=== PATIENT | male | born 1965 | race American Indian/Alaskan Native ===

== ENCOUNTER 2017-10-13 01:20 | Emergency (ER) | payer SELFPAY ==
[2017-10-13 03:11] VITALS: BP 129/83
[2017-10-13 05:30] LABS: Bilirubin,Urine NEG (Negative); Blood,Urine MOD (Negative); Color,Urine Yellow (Yellow); Mucus,Urine FEW /HPF; Urobilinogen,Urine < 2.0 mg/dL (<2.0)
--- NOTE | 2017-10-13 07:34 | Emergency Department Report ---
HPI - General Chief Complaint: Extremity Problem,Nontraumatic Time Seen by Provider: 10/13/17 07:24 - HPI HPI: Patient is a 52-year-old male with a history of blood pressure control with medication will presents to ED complaining of left knee 2 days. Patient states he woke up Wednesday morning and notices this swallowing. Patient denies any injury, fall to the knee. Patient states that he would've vehemently due to the pain in the knee. He denies fevers/chills/nausea vomiting/history of gout/loss of sensation the knee/injury. ED Past Medical Hx - Past Medical History Previous Medical History?: Yes Hx Hypertension: Yes Hx HIV: Yes - Surgical History Past Surgical History?: Yes Hx Appendectomy: Yes Additional Surgical History: benign tumor removed from neck - Social History Smoking Status: Never Smoker Substance Use Type: None - Medications Home Medications: Home Medications Medication Instructions Recorded Confirmed Last Taken Type Naproxen [Naprosyn] 500 mg PO BID #40 tablet 10/13/17 Unknown Rx traMADol [Ultram 50 MG tab] 50 mg PO Q6HR PRN #20 tablet 10/13/17 Unknown Rx ED Review of Systems ROS: Stated complaint: LT KNEE PAIN Other details as noted in HPI Constitutional: denies: chills, fever Eyes: denies: eye pain, eye discharge, vision change ENT: denies: ear pain, throat pain Respiratory: denies: cough, shortness of breath, wheezing Cardiovascular: denies: chest pain, palpitations Endocrine: no symptoms reported Gastrointestinal: denies: abdominal pain, nausea, diarrhea Genitourinary: denies: urgency, dysuria Musculoskeletal: joint swelling (L knee), arthralgia. denies: back pain Skin: denies: rash, lesions Neurological: denies: headache, weakness, paresthesias Psychiatric: denies: anxiety, depression Hematological/Lymphatic: denies: easy bleeding, easy bruising Physical Exam - Physical Exam Vital Signs: Vital Signs 10/13/17 02:56 Temperature 98.5 F Pulse Rate 94 H Respiratory 20 Rate Blood Pressure 129/83 O2 Sat by Pulse 96 Oximetry Physical Exam: GENERAL: Alert and oriented x3, no apparent distress, Normal Gait, atraumatic. HEAD: Head is normocephalic and a-traumatic. NECK: Supple. Non edematous, No lymphadenopathy or thyromegaly. No C-spine tenderness, full range of motion LUNGS: Symetrical with respiration, No wheezing, no rales or crackles, CTAB. HEART: S1, S2 present, regular rate and rhythm without murmur, no rubs, no gallops. Non tender to palpation BACK: Full range of motion, no spinal tenderness, Tenderness to palpation of the trapezius muscles and latissimus dorsi muscles of the back EXTREMITIES/MUSCULOSKELETAL: Left knee warm to touch, moderate edema, tender to palpation, pain with flexion and extension. Non-erythematous non- cellulitic. No cyanosis, clubbing, rash, lesions . Full ROM bilaterally. UE/LE Pulses 2+ bilaterally. LE and UE 5+ strength bilaterally. No calf involvement. NEUROLOGIC: The patient is cooperative with no focal neurologic deficits. SKIN: Warm and dry, No lesions, No ulceration or induration present. ED Course Vital Signs 10/13/17 02:56 Temperature 98.5 F Pulse Rate 94 H Respiratory 20 Rate Blood Pressure 129/83 O2 Sat by Pulse 96 Oximetry ED Medical Decision Making - Radiology Data Radiology results: report reviewed, image reviewed XRAY LEFT KNEE 3 VIEWS: 10/13/17 01:20:00 CLINICAL: Left knee pain and swelling. FINDINGS: No fracture or dislocation. Moderate medial joint space narrowing and mild medial joint space narrowing. Small medial and lateral osteophytes and subtle medial and lateral meniscal chondrocalcinosis. Minimal patellofemoral joint arthritis. Moderate anterior subcutaneous soft tissue edema and a small knee joint effusion. IMPRESSION: Mild osteoarthritis. Meniscal chondrocalcinosis and a small knee joint effusion. Transcribed By: REF Dictated By: KARL MAHER MD Electronically Authenticated By: KARL MAHER MD Signed Date/Time: 10/13/17 0755 - Medical Decision Making 52-year-old male presents with nonseptic osteoarthritis with mild effusion of the left knee ED course: Patient received pain control in ED X-rays ordered. See x-ray report above, discussed findings with the patient. Discussed the patient will follow-up with orthopedic doctor. Due to small effusion, no fever, patient looks well and nonseptic, discussed the patient will need to follow up with orthopedic doctor and possibly might get the knee joint arthrocentesis. I discussed the patient has some sounds knee effusions resolve on their own. I also discussed the patient hoarseness symptoms or new onset of symptoms such as fever, headache to return to ED immediately Vital signs are normal patient is in no acute distress - Differential Diagnosis 1. knee Joint effusion 2.osteoArthritis 3. gouty arthritis Critical care attestation.: If time is entered above; I have spent that time in minutes in the direct care of this critically ill patient, excluding procedure time. ED Disposition Clinical Impression: Effusion of left knee joint Osteoarthritis of left knee Qualifiers: Osteoarthritis type: primary Qualified Code(s): M17.12 - Unilateral primary osteoarthritis, left knee Disposition: TO HOME OR SELFCARE Is pt being admited?: No Does the pt Need Aspirin: No Condition: Stable Instructions: Osteoarthritis (ED), Knee Effusion (ED) Additional Instructions: Make sure to follow up with the orthopedic doctor as discussed. Take all your medications as you've been prescribed. If you have any worsening symptoms or develop new symptoms please return to ED immediately. Prescriptions: Naproxen [Naprosyn] 500 mg PO BID #40 tablet traMADol [Ultram 50 MG tab] 50 mg PO Q6HR PRN #20 tablet PRN Reason: Pain Referrals: PRIMARY CARE, [Primary Care Provider] - 3-5 Days VINCENZO PAGE MD [Staff Physician] - 3-5 Days [facility] [Outside] - 3-5 Days [facility] [Outside] - 3-5 Days Forms: Accompanied Note, Work/School Release Form(ED) Time of Disposition: 08:29
[2017-10-13] MEDS ORDERED: TORADOL IM ONE (07:37)
[2017-10-13] MEDS ORDERED: DELTASONE PO ONE (07:37)
--- NOTE | 2017-10-13 08:07 | XRay Report ---
XRAY LEFT KNEE 3 VIEWS: 10/13/17 01:20:00 CLINICAL: Left knee pain and swelling. FINDINGS: No fracture or dislocation. Moderate medial joint space narrowing and mild medial joint space narrowing. Small medial and lateral osteophytes and subtle medial and lateral meniscal chondrocalcinosis. Minimal patellofemoral joint arthritis. Moderate anterior subcutaneous soft tissue edema and a small knee joint effusion. IMPRESSION: Mild osteoarthritis. Meniscal chondrocalcinosis and a small knee joint effusion.
== END 2017-10-13 08:48 | disposition home or self-care (01) ==
LOC: ED 01:20
DX: M25.462 Effusion, left knee (principal); M17.12 Unilateral primary osteoarthritis, left knee; I10 Essential (primary) hypertension; Z90.49 Acquired absence of other specified parts of digestive tract
CPT/HCPCS: 73562; 81001; 96372; 99283; J1885; J7512

== ENCOUNTER 2017-10-14 19:07 | Inpatient (IN) | payer OTHER ==
[2017-10-15] MEDS ORDERED: XYLOCAINE 2% INFILTRATI ONE ×2 (02:20→02:21)
[2017-10-15] MEDS ORDERED: PERCOCET 5/325 PO ONE (02:21)
[2017-10-15] MEDS ORDERED: LEVAQUIN PO ONE (02:23)
--- NOTE | 2017-10-15 02:33 | Emergency Department Report ---
ED Extremity Problem HPI - General Chief complaint: Extremity Injury, Lower Stated complaint: LEFT KNEE PAIN Time Seen by Provider: 10/15/17 02:01 Source: patient, family Mode of arrival: Wheelchair Limitations: No Limitations - History of Present Illness Initial comments: Patient reports that he was here 2 days ago with left knee swelling and pain and he is returning today because pain is worse and swelling has not subsided. He is still complaining of urinary frequency but no burning with urination. Denies unprotected sex. Pain to left knees to another 10. Denies any back or abdominal pain. Denies any injury to his left knee. He states that he just woke up and it was swollen. Pain is throbbing to his left knee. Denies any history of infectious disease. Patient said he does not have gout. He does not have a primary care physician. He said he has been taking in naproxen and tramadol that was ordered for him but it's not helping. X-ray from 10/13/2017 reveals patient with degenerative joint disease,meniscal chondrocalcinosis and small joint effusion. Pain is worse with movement and touch bed with rest. Patient is HIV positive and takes through medication. He goes infectious disease on another road. He said his last 500+ and viral load was less than 20. Denies any cough, shortness of breath or chest pain. Denies any sore throat. MD Complaint: joint swelling, joint paint Onset/Timin -: days(s) Location: left, knee History of Same: No -: No myalgia, Yes arthralgia, No fever, No associated dyspnea, No associated chest pain Radiation: none Severity scale (0 -10): 10 Quality: aching, constant, other (throbbing ) Consistency: constant Improves with: immobilization, rest Worsens with: weight bearing, walking, exertion, palpation Associated Symptoms: arthralgias. denies: chest pain, shortness of breath, fever, myalgias, rash - Related Data Home Medications Medication Instructions Recorded Confirmed Last Taken Aspirin [Aspir-Low] 81 mg PO DAILY 10/15/17 10/15/17 1 Day Ago ~10/14/17 Hydrochlorothiazide [HCTZ] 25 mg PO QDAY 10/15/17 10/15/17 1 Day Ago ~10/14/17 Lisinopril [Zestril] 10 mg PO DAILY 10/15/17 10/15/17 1 Day Ago ~10/14/17 Previous Rx's Medication Instructions Recorded Last Taken Type Naproxen [Naprosyn] 500 mg PO BID #40 tablet 10/13/17 1 Day Ago Rx ~10/14/17 Oxybutynin [Ditropan] 5 mg PO BID #20 tablet 10/13/17 1 Day Ago Rx ~10/14/17 traMADol [Ultram 50 MG tab] 50 mg PO Q6HR PRN #20 tablet 10/13/17 1 Day Ago Rx ~10/14/17 Allergies Allergy/AdvReac Type Severity Reaction Status Date / Time Penicillins Allergy Rash Verified 09/12/13 22:45 ED Review of Systems ROS: Stated complaint: LEFT KNEE PAIN Other details as noted in HPI Comment: All other systems reviewed and negative Constitutional: no symptoms reported Respiratory: no symptoms reported Cardiovascular: denies: chest pain, palpitations, dyspnea on exertion, edema, syncope, paroxysmal nocturnal dyspnea Gastrointestinal: denies: abdominal pain, nausea, vomiting, diarrhea Genitourinary: frequency. denies: urgency, dysuria, hematuria, discharge, testicular pain, testicular mass Musculoskeletal: joint swelling, arthralgia. denies: back pain, myalgia Skin: denies: rash Neurological: abnormal gait. denies: headache, weakness, numbness, confusion, vertigo ED Past Medical Hx - Past Medical History Previous Medical History?: Yes Hx Hypertension: Yes Hx HIV: Yes - Surgical History Past Surgical History?: Yes Hx Appendectomy: Yes Additional Surgical History: benign tumor removed from neck - Family History Family history: no significant - Social History Smoking Status: Never Smoker Substance Use Type: None - Medications Home Medications: Home Medications Medication Instructions Recorded Confirmed Last Taken Type Naproxen [Naprosyn] 500 mg PO BID #40 tablet 10/13/17 10/15/17 1 Day Ago Rx ~10/14/17 Oxybutynin [Ditropan] 5 mg PO BID #20 tablet 10/13/17 10/15/17 1 Day Ago Rx ~10/14/17 traMADol [Ultram 50 MG tab] 50 mg PO Q6HR PRN #20 tablet 10/13/17 10/15/17 1 Day Ago Rx ~10/14/17 Aspirin [Aspir-Low] 81 mg PO DAILY 10/15/17 10/15/17 1 Day Ago History ~10/14/17 Hydrochlorothiazide [HCTZ] 25 mg PO QDAY 10/15/17 10/15/17 1 Day Ago History ~10/14/17 Lisinopril [Zestril] 10 mg PO DAILY 10/15/17 10/15/17 1 Day Ago History ~10/14/17 ED Physical Exam - General Limitations: No Limitations General appearance: alert, in no apparent distress - Head Head exam: Present: atraumatic, normocephalic, normal inspection, other (normal exam) - Eye Eye exam: Present: normal appearance, PERRL, EOMI. Absent: nystagmus Pupils: Present: normal accommodation - ENT ENT exam: Present: normal exam, normal orophraynx, mucous membranes moist, TM's normal bilaterally, normal external ear exam - Neck Neck exam: Present: normal inspection, full ROM, other (no C-spine tenderness). Absent: tenderness, meningismus, lymphadenopathy - Respiratory Respiratory exam: Present: normal lung sounds bilaterally. Absent: respiratory distress, wheezes, rales, rhonchi, stridor, chest wall tenderness, accessory muscle use, decreased breath sounds, prolonged expiratory - Cardiovascular Cardiovascular Exam: Present: normal rhythm, tachycardia, normal heart sounds. Absent: systolic murmur, diastolic murmur - GI/Abdominal GI/Abdominal exam: Present: soft, normal bowel sounds. Absent: distended, tenderness, guarding, rebound, rigid, organomegaly, mass, bruit, pulsatile mass , hernia - Extremities Exam Extremities exam: Present: tenderness (left knee), normal capillary refill, joint swelling (left knee), other (no clubbing cyanosis or edema. Patient with positive swelling and joint effusion to left knee. Positive warmth. Positive ballottement . Increased movement to left knee at 4/5. +2 pulses all extremities). Absent: normal inspection, full ROM (Limited range of motion to left knee due to pain and swelling.), pedal edema, calf tenderness - Expanded Lower Extremity Exam Left Hip exam: Present: normal inspection, full ROM, pelvic stability. Absent: tenderness, swelling, abrasion, laceration, ecchymosis, deformity, crepidus, dislocation, erythema, external rotation, internal rotation, shortening Upper Leg exam: Present: normal inspection, full ROM. Absent: tenderness, swelling, abrasion, laceration, ecchymosis, deformity, crepidus, dislocation, erythema Knee exam: Present: tenderness (left knee), swelling (F knee), effusion, pain w / pronation/supination, pain/laxity with valgus, pain/laxity with varus. Absent : normal inspection, full ROM (limited range of motion to left knee due to pain and swelling), abrasion, laceration, ecchymosis, deformity, posterior draw sign , full knee extension Lower Leg exam: Present: normal inspection, full ROM. Absent: tenderness, swelling, abrasion, laceration, ecchymosis, deformity, crepidus, dislocation, erythema, palpable cord, Vaughn's sign Ankle exam: Present: normal inspection, full ROM. Absent: abrasion, laceration , ecchymosis, deformity, crepidus, dislocation, erythema Foot/Toe exam: Present: normal inspection, full ROM. Absent: tenderness, swelling, abrasion, laceration, ecchymosis, deformity, crepidus, dislocation, erythema, amputation, puncture wound, foreign body, calcaneal tenderness, tenderness at base of 5th metatarsal, nail avulsion, subungual hematoma Neuro vascular tendon exam: Present: no vascular compromise, motor deficit (4/5 strength to left knee due to pain and swelling.), significant pain with passive ROM of distal joint. Absent: pulse deficit, abnormal cap refill, sensory deficit, tendon deficit, extremity cold to touch, pallor, abnormal 2-point discrimination, decreased fine/light touch, foot drop, peroneal nerve deficit Gait: Positive: unable to bear weight - Back Exam Back exam: Present: normal inspection, full ROM. Absent: tenderness, CVA tenderness (R), CVA tenderness (L), muscle spasm, paraspinal tenderness, vertebral tenderness, rash noted - Neurological Exam Neurological exam: Present: alert, oriented X3, abnormal gait (patient with abnormal gait left lower extremity due to left knee effusion, swelling and pain) , reflexes normal (left patellar reflex diminished comparing to right) - Psychiatric Psychiatric exam: Present: normal affect, normal mood - Skin Skin exam: Present: warm, dry, intact, normal color. Absent: rash ED Course Vital Signs 10/14/17 10/15/17 10/15/17 19:22 01:55 05:39 Temperature 97.8 F 99.3 F Pulse Rate 104 H 85 Respiratory 18 18 18 Rate Blood Pressure 136/78 Blood Pressure 135/86 [Right] O2 Sat by Pulse 95 99 99 Oximetry - Reevaluation(s) Reevaluation #1: 10/15/17 02:58 Patient given Percocet 5/325 mg 2 tablets by mouth preprocedure. He was given Levaquin 750 mg by mouth to cover urinary tract infection as he is allergic to penicillin. This was given post procedure. See procedure note for detail on joint aspiration and knee immobilizer. Reevaluation #2: 10/15/17 04:05 Patient is stable and pain control. Still awaiting in reports for synovial fluid left knee. Lab report the patient with white blood cell in synovial fluid , some red blood cell and no crystal. Patient to be started on IV vancomycin 1 g, CBC and BMP ordered. Patient updated. Reevaluation #3: 10/15/17 05:[address] Tong and he wants patient to be admitted under hospitalist service. I spoke with Dr. Gorman and he wants patient to get Rocephin 2 g IV despite being allergic to penicillin. Still awaiting and vancomycin. Patient aware that he will be admitted. Knee immobilizer removed. Reevaluation #4: 10/15/17 07:12 Patient awaited in admission to [facility] floor. Rocephin infused then and vancomycin until 2 infused. Patient is HIV positive on 3 medication and goes to HIV clinic - Consultations Consultation #1: 10/15/17 07:13 Dr. Briones orthopedic - Joint Aspiration/Injection Consent Obtained: written consent Time Out Performed: Yes (done by Dr. Tong) Indications: to relieve pressure/pain Side of Body: left Joint Aspirated: knee Ultrasound Guidance: No Skin Prep: Povidone-Iodine1% Local Anesthesia Used: Lidocaine 2% Amount of Anesthesia Used (mls): 5 Needle Size Used: 18G Syringe Size Used: Other (30 mL syringe) Fluid Obtained: viscous (yellow fluid) Total Fluid Obtained (mls): 30 Patient Tolerated Procedure: well, no complications Complications: none Additional Comments: Area cleansed with iodine and saline and dressed in place site - Orthopedic Splinting/Casting Injury #1 Lower Extremity Injury Location: knee Lower Extremity Immobilizer: knee immobilizer ED Medical Decision Making - Lab Data Result diagrams: 10/15/17 05:45 10/15/17 05:45 Lab Results 10/15/17 Range/Units 02:40 Fluid Type Synovial Fluid Color Yellow Fluid Appearance Turbid Fluid WBC 16159 /mm3 Fluid RBC 1000 /mm3 Fluid Seg Neutrophils 85.0 % Fluid Lymphocytes 11.0 % Fluid Reactive Lymphs 0 % Fluid Monocytes 4.0 % Fluid Eosinophils 0 % Fluid Basophils 0 % Fluid Comment Diff performed Synovial Crystals Negative (NONE SEEN) Lab Results 10/15/17 Range/Units 02:40 Fluid Type Synovial Fluid Color Yellow Fluid Appearance Turbid Fluid WBC 12749 /mm3 Fluid RBC 1000 /mm3 Fluid Seg Neutrophils 85.0 % Fluid Lymphocytes 11.0 % Fluid Reactive Lymphs 0 % Fluid Monocytes 4.0 % Fluid Eosinophils 0 % Fluid Basophils 0 % Fluid Comment Diff performed Synovial Crystals Negative (NONE SEEN) White blood count is 19.1 with shift to the left Pt with acute renal failure Blood cultures sent and pending Body fluid, left knee aspirate culture pending. Gram stain is pending. Urinalysis from 10/13/2017 reveal patient with acute cystitis with hematuria Urine gonorrhea and chlamydia sent and pending - Radiology Data Radiology results: image reviewed interpreted by me: Images from 10/13/2017 review patient with small effusion, degenerative joint disease and meniscal chondrocalcinosis. - Medical Decision Making ED course:Pt here complaining of left knee pain and swelling and he was here and 10/13/2017 and was sent home on tramadol and naproxen. Patient said the swelling has not gone down and he still have been pain. X-ray report reviewed from 10/13/2017 and showed patient with meniscal chondrocalcinosis, osteoarthritis and small joint effusion. Knee aspirate done under sterile procedure and patient with large amount of white cells and some red blood cell. Culture and Gram stain is still pending. Patient was also found to have urinary tract infection from 10/13/2017 lab work which she has not been placed on antibiotic. Patient afebrile initially but he started to develop low-grade fever. He was given Motrin 600 mg emergency room. I spoke with Dr. Tong regarding patient's knee aspirate and it was decided the patient will be admitted for septic joint. I spoke with Dr. Gorman will accept the patient. Orthopedic consulted. She is with HIV and is on 3 medication and also goes to clinic on that and all the road. He said his T-cell count was 500+ and viral load is less than 20. Initially patient was treated with Levaquin 750 mg by mouth for UTI. Patient now with septic joint so he was started on IV fluid 1 L , Percocet 5/325 2 tablets by mouth given, vancomycin 1 g and P care service ordered and Rocephin [address] Driscoll. He is aware the patient is allergic to penicillin but he still wanted patient to get medication. No adverse reaction from Rocephin and vancomycin to be started. Patient had multiple labs drawn and sent and he has elevated white count. Please refer to laboratory section on results. He's also has slightly diminished potassium and sodium and also acute renal failure. I discussed the patient and his family that he will be admitted and treated with IV antibiotic and followed by hospitalist and orthopedic doctor. Family to bring patient HIV meds so they can be reconciled. Patient is stable in no acute distress. Vital signs are stable. Awaiting to be placed on [facility] floor Critical care attestation.: If time is entered above; I have spent that time in minutes in the direct care of this critically ill patient, excluding procedure time. ED Disposition Clinical Impression: Effusion of left knee joint, Acute cystitis with hematuria, Arthralgia of left knee Septic arthritis of knee, left Qualifiers: Septic arthritis organism: due to other bacteria Qualified Code(s): M00.862 - Arthritis due to other bacteria, left knee Osteoarthritis of left knee Qualifiers: Osteoarthritis type: unspecified Qualified Code(s): M17.12 - Unilateral primary osteoarthritis, left knee Leukocytosis Qualifiers: Leukocytosis type: unspecified Qualified Code(s): D72.829 - Elevated white blood cell count, unspecified Acute renal failure (ARF) Qualifiers: Acute renal failure type: unspecified Qualified Code(s): N17.9 - Acute kidney failure, unspecified Disposition: -09 OP ADMIT IP TO THIS HOSP Is pt being admited?: Yes Does the pt Need Aspirin: No Condition: Stable
[2017-10-15 04:59] LABS: Total Cells Counted 100 /mm3
[2017-10-15] MEDS ORDERED: cefTRIAXone 2 GM in NACL 0.9% 20 ML IV ONE (05:23)
[2017-10-15] MEDS ORDERED: MOTRIN PO ONE (05:38)
[2017-10-15] MEDS ORDERED: NACL 0.9% 1000 ML 1,000 ML IV ONE (05:38)
[2017-10-15 05:52] LABS: Hematocrit 39.1 % (35.5-45.6); Hemoglobin 12.9 gm/dl (11.8-15.2); Mean Corpuscular HGB Conc 33 % (32-34); Mean Corpuscular Hemoglobin 28 pg (28-32); Mean Corpuscular Volume 85 fl (84-94); Platelet Count 305 K/mm3 (140-440); Red Blood Count 4.58 M/mm3 (3.65-5.03); Red Cell Distribution Width 14.1 % (13.2-15.2)
[2017-10-15] MEDS ORDERED: VANCOMYCIN PHARMACY TO DOSE IV SCH ×2 (06:00→13:00)
[2017-10-15] MEDS ORDERED: VANCOMYCIN/NS 1 GM/250 ML 1 GM/250 ML BAG IV SCH ×2 (06:00)
[2017-10-15 06:07] LABS: Calcium 8.8 mg/dL (8.4-10.2)
[2017-10-15 06:26] LABS: Erythrocyte Sedimentation Rate 29 mm/Hr (0-20)
[2017-10-15] MEDS ORDERED: cefTRIAXone 2 GM in NACL 0.9% 20 ML IV SCH ×2 (06:30→13:00)
[2017-10-15] MEDS ORDERED: VANCOMYCIN 2,000 MG in NACL 0.9% 500 ML 500 ML IV ONE ×2 (06:30→14:00)
[2017-10-15 07:05] LABS: Band Neutrophils # (Manual) 1.1 K/mm3; Basophils % (Manual) 0 % (0.0-1.8); Eosinophils % (Manual) 0 % (0.0-4.3); Total Cells Counted 100
[2017-10-15 07:06] LABS: Anisocytosis 1+; Hypochromasia 1+
[2017-10-15] MEDS: NACL 0.9% 1000 ML 1,000 ML IV SCH ×2 (09:18→17:53)
--- NOTE | 2017-10-15 12:38 | History and Physical Report ---
History of Present Illness Date of examination: 10/15/17 Date of admission: 10/15/17 05:24 Chief complaint: Left knee swelling History of present illness: Patient is a 52 year old -German male with history of HIV, who presented with 5 days history of left knee swelling. He denies fever, chills, chest pain, shortness of breath, palpitation, orthopnea or PND. No headaches, and nausea, vomiting, dizziness, syncope or loss of consciousness. He admits to dysuria and frequency, but no abdominal pain, constipation or diarrhea. 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) Social history: other (he denies tobacco, alcohol or illicit drug use) Family history: other (reviewed and noncontributory) Medications and Allergies Allergies Allergy/AdvReac Type Severity Reaction Status Date / Time Penicillins Allergy Rash Verified 09/12/13 22:45 Home Medications Medication Instructions Recorded Confirmed Last Taken Type Naproxen [Naprosyn] 500 mg PO BID #40 tablet 10/13/17 10/15/17 1 Day Ago Rx ~10/14/17 Oxybutynin [Ditropan] 5 mg PO BID #20 tablet 10/13/17 10/15/17 1 Day Ago Rx ~10/14/17 traMADol [Ultram 50 MG tab] 50 mg PO Q6HR PRN #20 tablet 10/13/17 10/15/17 1 Day Ago Rx ~10/14/17 Aspirin [Aspir-Low] 81 mg PO DAILY 10/15/17 10/15/17 1 Day Ago History ~10/14/17 Hydrochlorothiazide [HCTZ] 25 mg PO QDAY 10/15/17 10/15/17 1 Day Ago History ~10/14/17 Lisinopril [Zestril] 10 mg PO DAILY 10/15/17 10/15/17 1 Day Ago History ~10/14/17 Active Meds: Active Medications Sodium Chloride (Nacl 0.9% 1000 Ml) 1,000 mls @ 125 mls/hr IV DIRECT CESAR Last Admin: 10/15/17 09:18 Dose: 125 mls/hr Review of Systems All systems: negative (except as documented in the HPI, all other systems were reviewed and negative) Exam - Constitutional Vitals: Temp Pulse Resp BP Pulse Ox 98.0 F 80 18 118/70 97 10/15/17 09:35 10/15/17 09:35 10/15/17 09:35 10/15/17 09:35 10/15/17 09:35 General appearance: Present: no acute distress, well-nourished - EENT Eyes: Present: PERRL, EOM intact ENT: hearing intact, clear oral mucosa - Neck Neck: Present: supple, normal ROM - Respiratory Respiratory effort: normal Respiratory: bilateral: CTA - Cardiovascular Rhythm: regular Heart Sounds: Present: S1 & S2. Absent: rub, click - Extremities Extremities: pulses symmetrical Extremity abnormal: edema (LT knee with warmth and tenderness on palpation) Peripheral Pulses: within normal limits - Abdominal General gastrointestinal: Present: soft, non-tender, non-distended, normal bowel sounds - Musculoskeletal Musculoskeletal: gait normal, strength equal bilaterally - Psychiatric Psychiatric: appropriate mood/affect, intact judgment & insight - Neurologic Neurologic: CNII-XII intact Results - Labs CBC & Chem 7: 10/15/17 05:45 10/15/17 05:45 Labs: Laboratory Last Values WBC 19.1 K/mm3 (4.5-11.0) H 10/15/17 05:45 RBC 4.58 M/mm3 (3.65-5.03) 10/15/17 05:45 Hgb 12.9 gm/dl (11.8-15.2) 10/15/17 05:45 Hct 39.1 % (35.5-45.6) 10/15/17 05:45 MCV 85 fl (84-94) 10/15/17 05:45 MCH 28 pg (28-32) 10/15/17 05:45 MCHC 33 % (32-34) 10/15/17 05:45 RDW 14.1 % (13.2-15.2) 10/15/17 05:45 Plt Count 305 K/mm3 (140-440) 10/15/17 05:45 [place] % (Auto) Astrophysics Teacher 10/15/17 05:45 Add Manual Diff Complete 10/15/17 05:45 Total Counted 100 10/15/17 05:45 Seg Neuts % (Manual) 57.0 % (40.0-70.0) 10/15/17 05:45 Band Neutrophils % 6.0 % 10/15/17 05:45 Lymphocytes % (Manual) 18.0 % (13.4-35.0) 10/15/17 05:45 Reactive Lymphs % (Man) 0 % 10/15/17 05:45 Monocytes % (Manual) 19.0 % (0.0-7.3) H 10/15/17 05:45 Eosinophils % (Manual) 0 % (0.0-4.3) 10/15/17 05:45 Basophils % (Manual) 0 % (0.0-1.8) 10/15/17 05:45 Metamyelocytes % 0 % 10/15/17 05:45 Myelocytes % 0 % 10/15/17 05:45 Promyelocytes % 0 % 10/15/17 05:45 Blast Cells % 0 % 10/15/17 05:45 Nucleated RBC % Not Reportable 10/15/17 05:45 Seg Neutrophils # Man 10.9 K/mm3 (1.8-7.7) H 10/15/17 05:45 Band Neutrophils # 1.1 K/mm3 10/15/17 05:45 Lymphocytes # (Manual) 3.4 K/mm3 (1.2-5.4) 10/15/17 05:45 Abs React Lymphs (Man) 0.0 K/mm3 10/15/17 05:45 Monocytes # (Manual) 3.6 K/mm3 (0.0-0.8) H 10/15/17 05:45 Eosinophils # (Manual) 0.0 K/mm3 (0.0-0.4) 10/15/17 05:45 Basophils # (Manual) 0.0 K/mm3 (0.0-0.1) 10/15/17 05:45 Metamyelocytes # 0.0 K/mm3 10/15/17 05:45 Myelocytes # 0.0 K/mm3 10/15/17 05:45 Promyelocytes # 0.0 K/mm3 10/15/17 05:45 Blast Cells # 0.0 K/mm3 10/15/17 05:45 WBC Morphology Not Reportable 10/15/17 05:45 Hypersegmented Neuts Not Reportable 10/15/17 05:45 Hyposegmented Neuts Not Reportable 10/15/17 05:45 Hypogranular Neuts Not Reportable 10/15/17 05:45 Smudge Cells Not Reportable 10/15/17 05:45 Toxic Granulation Not Reportable 10/15/17 05:45 Toxic Vacuolation Not Reportable 10/15/17 05:45 Dohle Bodies Not Reportable 10/15/17 05:45 Pelger-Huet Anomaly Not Reportable 10/15/17 05:45 Radha Rods Not Reportable 10/15/17 05:45 Platelet Estimate Appears normal 10/15/17 05:45 Clumped Platelets Not Reportable 10/15/17 05:45 Plt Clumps, EDTA Not Reportable 10/15/17 05:45 Large Platelets Not Reportable 10/15/17 05:45 Giant Platelets Not Reportable 10/15/17 05:45 Platelet Satelliting Not Reportable 10/15/17 05:45 Plt Morphology Comment Not Reportable 10/15/17 05:45 RBC Morphology Not Reportable 10/15/17 05:45 Dimorphic RBCs Not Reportable 10/15/17 05:45 Polychromasia Not Reportable 10/15/17 05:45 Hypochromasia 1+ 10/15/17 05:45 Poikilocytosis Not Reportable 10/15/17 05:45 Anisocytosis 1+ 10/15/17 05:45 Microcytosis Not Reportable 10/15/17 05:45 Macrocytosis Not Reportable 10/15/17 05:45 Spherocytes Not Reportable 10/15/17 05:45 Pappenheimer Bodies Not Reportable 10/15/17 05:45 Sickle Cells Not Reportable 10/15/17 05:45 Target Cells Not Reportable 10/15/17 05:45 Tear Drop Cells Not Reportable 10/15/17 05:45 Ovalocytes Not Reportable 10/15/17 05:45 Helmet Cells Not Reportable 10/15/17 05:45 [place] Bodies Not Reportable 10/15/17 05:45 [place] Rings Not Reportable 10/15/17 05:45 Melani Cells Not Reportable 10/15/17 05:45 Bite Cells Not Reportable 10/15/17 05:45 Crenated Cell Not Reportable 10/15/17 05:45 Elliptocytes Not Reportable 10/15/17 05:45 Acanthocytes (Spur) Not Reportable 10/15/17 05:45 Rouleaux Not Reportable 10/15/17 05:45 Hemoglobin C Crystals Not Reportable 10/15/17 05:45 Schistocytes Not Reportable 10/15/17 05:45 Malaria parasites Not Reportable 10/15/17 05:45 ESR 29 mm/Hr (0-20) 10/15/17 05:45 Raf Bodies Not Reportable 10/15/17 05:45 Hem Pathologist Commnt No 10/15/17 05:45 Sodium 136 mmol/L (137-145) L 10/15/17 05:45 Potassium 4.8 mmol/L (3.6-5.0) 10/15/17 05:45 Chloride 96.6 mmol/L (98-107) L 10/15/17 05:45 Carbon Dioxide 26 mmol/L (22-30) 10/15/17 05:45 Anion Gap 18 mmol/L 10/15/17 05:45 BUN 27 mg/dL (9-20) H 10/15/17 05:45 Creatinine 1.7 mg/dL (0.8-1.5) H 10/15/17 05:45 Estimated GFR 52 ml/min 10/15/17 05:45 BUN/Creatinine Ratio 16 % 10/15/17 05:45 Glucose 134 mg/dL (75-100) H 10/15/17 05:45 Calcium 8.8 mg/dL (8.4-10.2) 10/15/17 05:45 Fluid Type Synovial 10/15/17 02:40 Fluid Color Yellow 10/15/17 02:40 Fluid Appearance Turbid 10/15/17 02:40 Fluid WBC 07641 /mm3 10/15/17 02:40 Fluid RBC 1000 /mm3 10/15/17 02:40 Fluid Seg Neutrophils 85.0 % 10/15/17 02:40 Fluid Lymphocytes 11.0 % 10/15/17 02:40 Fluid Reactive Lymphs 0 % 10/15/17 02:40 Fluid Monocytes 4.0 % 10/15/17 02:40 Fluid Eosinophils 0 % 10/15/17 02:40 Fluid Basophils 0 % 10/15/17 02:40 Fluid Comment Diff performed 10/15/17 02:40 Synovial Crystals Negative (NONE SEEN) 10/15/17 02:40 Assessment and Plan Assessment and plan: Left knee septic arthritis -s/p joint aspiration -Continue IV antibiotics -f/u blood and synovial fluid cultures -ortho surgery consulted Sepsis sec to the septic arthritis -cont IV antibiotics -Blood and synovial fluid cultures pending BRENDON -cont IVF -will monitor cr elevel -avoid nephrotoxins H/o HIV -for out pt f/u HTN -stable Disp: d/c pt when medically stable 38 minutes spent coordinating care
[2017-10-15] MEDS ORDERED: XYLOCAINE 1% MPF 5 mL INFILTRATI ONE (12:46)
[2017-10-15] MEDS ORDERED: ROCEPHIN 2,000 MG in NACL 0.9% 50 ML IV SCH (13:00)
[2017-10-15] MEDS: PERCOCET 5/325 PO PRN ×3 (13:54→22:52)
[2017-10-16] MEDS: NACL 0.9% 1000 ML 1,000 ML IV SCH ×2 (01:54→10:25)
[2017-10-16 05:46] LABS: Hematocrit 37.3 % (35.5-45.6); Mean Corpuscular HGB Conc 32 % (32-34); Mean Corpuscular Hemoglobin 28 pg (28-32); Mean Corpuscular Volume 87 fl (84-94); Platelet Count 304 K/mm3 (140-440); Red Cell Distribution Width 14.2 % (13.2-15.2)
[2017-10-16 06:04] LABS: Alanine Aminotransferase 11 units/L (7-56); Albumin 3.1 g/dL (3.9-5); BUN/Creatinine Ratio 9; Blood Urea Nitrogen 12 mg/dL (9-20); Calcium 8.1 mg/dL (8.4-10.2); Hemolysis Index 18
[2017-10-16] MEDS: PERCOCET 5/325 PO PRN ×5 (06:11→23:16)
[2017-10-16] MEDS: cefTRIAXone 2 GM in NACL 0.9% 20 ML IV SCH (06:14)
[2017-10-16 06:41] LABS: Band Neutrophils # (Manual) 0.2 K/mm3; Basophils % (Manual) 0 % (0.0-1.8); Total Cells Counted 100
[2017-10-16 06:42] LABS: Anisocytosis 1+; Hypochromasia 1+
[2017-10-16 09:45] LABS: Amorphous Crystals,Urine Few; Bacteria,Urine 1+ /HPF (Negative); Bilirubin,Urine NEG (Negative); Blood,Urine MOD (Negative); Color,Urine Yellow (Yellow); Mucus,Urine FEW /HPF; Urobilinogen,Urine < 2.0 mg/dL (<2.0)
[2017-10-16] MEDS ORDERED: NORVIR 100 MG PO SCH (10:00)
[2017-10-16] MEDS ORDERED: VANCOMYCIN 1,750 MG in NACL 0.9% 500 ML 500 ML IV SCH (10:00)
[2017-10-16] MEDS ORDERED: PREZISTA 800 MG PO SCH (10:00)
[2017-10-16] MEDS: HALFPRIN EC PO SCH (11:51)
[2017-10-16] MEDS: DITROPAN PO SCH ×2 (11:52→23:12)
--- NOTE | 2017-10-16 12:42 | Progress Note ---
Assessment and Plan Assessment and plan: Left knee septic arthritis -s/p joint aspiration -Continue IV antibiotics -blood cultures neg so far -synovial fluid neg for any growth -ortho surgery consult pending Sepsis sec to the septic arthritis -cont IV antibiotics, wbc level improving. -Blood cultures neg so far -ID consulted BRENDON -improving on IVF -will cont to monitor cr elevel -avoid nephrotoxins H/o HIV -HAART therapy resumed HTN -stable Disp: d/c pt when medically stable History Interval history: Patient complained of left knee pain Hospitalist Physical - Constitutional Vitals: Temp Pulse Resp BP Pulse Ox 100.3 F H 99 H 18 141/79 94 10/16/17 08:00 10/16/17 08:00 10/16/17 08:00 10/16/17 08:00 10/16/17 08:00 General appearance: Present: no acute distress, well-nourished - EENT Eyes: Present: PERRL, EOM intact ENT: hearing intact - Neck Neck: Present: supple - Respiratory Respiratory effort: normal Respiratory: bilateral: CTA - Cardiovascular Rhythm: regular Heart Sounds: Present: S1 & S2 - Extremities Extremity abnormal: edema (left knee) - Abdominal General gastrointestinal: soft, non-tender, normal bowel sounds - Neurologic Neurologic: CNII-XII intact Results - Labs CBC & Chem 7: 10/16/17 05:15 10/16/17 05:15 Labs: Laboratory Last Values WBC 17.9 K/mm3 (4.5-11.0) H 10/16/17 05:15 RBC 4.30 M/mm3 (3.65-5.03) 10/16/17 05:15 Hgb 12.0 gm/dl (11.8-15.2) 10/16/17 05:15 Hct 37.3 % (35.5-45.6) 10/16/17 05:15 MCV 87 fl (84-94) 10/16/17 05:15 MCH 28 pg (28-32) 10/16/17 05:15 MCHC 32 % (32-34) 10/16/17 05:15 RDW 14.2 % (13.2-15.2) 10/16/17 05:15 Plt Count 304 K/mm3 (140-440) 10/16/17 05:15 [place] % (Auto) Prosthetic Technician 10/16/17 05:15 Add Manual Diff Complete 10/16/17 05:15 Total Counted 100 10/16/17 05:15 Seg Neuts % (Manual) 70.0 % (40.0-70.0) 10/16/17 05:15 Band Neutrophils % 1.0 % 10/16/17 05:15 Lymphocytes % (Manual) 11.0 % (13.4-35.0) L 10/16/17 05:15 Reactive Lymphs % (Man) 0 % 10/16/17 05:15 Monocytes % (Manual) 14.0 % (0.0-7.3) H 10/16/17 05:15 Eosinophils % (Manual) 2.0 % (0.0-4.3) 10/16/17 05:15 Basophils % (Manual) 0 % (0.0-1.8) 10/16/17 05:15 Metamyelocytes % 2.0 % 10/16/17 05:15 Myelocytes % 0 % 10/16/17 05:15 Promyelocytes % 0 % 10/16/17 05:15 Blast Cells % 0 % 10/16/17 05:15 Nucleated RBC % Not Reportable 10/16/17 05:15 Seg Neutrophils # Man 12.5 K/mm3 (1.8-7.7) H 10/16/17 05:15 Band Neutrophils # 0.2 K/mm3 10/16/17 05:15 Lymphocytes # (Manual) 2.0 K/mm3 (1.2-5.4) 10/16/17 05:15 Abs React Lymphs (Man) 0.0 K/mm3 10/16/17 05:15 Monocytes # (Manual) 2.5 K/mm3 (0.0-0.8) H 10/16/17 05:15 Eosinophils # (Manual) 0.4 K/mm3 (0.0-0.4) 10/16/17 05:15 Basophils # (Manual) 0.0 K/mm3 (0.0-0.1) 10/16/17 05:15 Metamyelocytes # 0.4 K/mm3 10/16/17 05:15 Myelocytes # 0.0 K/mm3 10/16/17 05:15 Promyelocytes # 0.0 K/mm3 10/16/17 05:15 Blast Cells # 0.0 K/mm3 10/16/17 05:15 WBC Morphology Not Reportable 10/16/17 05:15 Hypersegmented Neuts Not Reportable 10/16/17 05:15 Hyposegmented Neuts Not Reportable 10/16/17 05:15 Hypogranular Neuts Not Reportable 10/16/17 05:15 Smudge Cells Not Reportable 10/16/17 05:15 Toxic Granulation Not Reportable 10/16/17 05:15 Toxic Vacuolation Not Reportable 10/16/17 05:15 Dohle Bodies Not Reportable 10/16/17 05:15 Pelger-Huet Anomaly Not Reportable 10/16/17 05:15 Radha Rods Not Reportable 10/16/17 05:15 Platelet Estimate Appears normal 10/16/17 05:15 Clumped Platelets Not Reportable 10/16/17 05:15 Plt Clumps, EDTA Not Reportable 10/16/17 05:15 Large Platelets Not Reportable 10/16/17 05:15 Giant Platelets Not Reportable 10/16/17 05:15 Platelet Satelliting Not Reportable 10/16/17 05:15 Plt Morphology Comment Not Reportable 10/16/17 05:15 RBC Morphology Not Reportable 10/16/17 05:15 Dimorphic RBCs Not Reportable 10/16/17 05:15 Polychromasia Not Reportable 10/16/17 05:15 Hypochromasia 1+ 10/16/17 05:15 Poikilocytosis Not Reportable 10/16/17 05:15 Anisocytosis 1+ 10/16/17 05:15 Microcytosis Not Reportable 10/16/17 05:15 Macrocytosis Not Reportable 10/16/17 05:15 Spherocytes Not Reportable 10/16/17 05:15 Pappenheimer Bodies Not Reportable 10/16/17 05:15 Sickle Cells Not Reportable 10/16/17 05:15 Target Cells Not Reportable 10/16/17 05:15 Tear Drop Cells Not Reportable 10/16/17 05:15 Ovalocytes Not Reportable 10/16/17 05:15 Helmet Cells Not Reportable 10/16/17 05:15 [place] Bodies Not Reportable 10/16/17 05:15 [place] Rings Not Reportable 10/16/17 05:15 Melani Cells Not Reportable 10/16/17 05:15 Bite Cells Not Reportable 10/16/17 05:15 Crenated Cell Not Reportable 10/16/17 05:15 Elliptocytes Not Reportable 10/16/17 05:15 Acanthocytes (Spur) Not Reportable 10/16/17 05:15 Rouleaux Not Reportable 10/16/17 05:15 Hemoglobin C Crystals Not Reportable 10/16/17 05:15 Schistocytes Not Reportable 10/16/17 05:15 Malaria parasites Not Reportable 10/16/17 05:15 ESR 29 mm/Hr (0-20) 10/15/17 05:45 Raf Bodies Not Reportable 10/16/17 05:15 Hem Pathologist Commnt No 10/16/17 05:15 Sodium 134 mmol/L (137-145) L 10/16/17 05:15 Potassium 4.1 mmol/L (3.6-5.0) 10/16/17 05:15 Chloride 97.1 mmol/L (98-107) L 10/16/17 05:15 Carbon Dioxide 28 mmol/L (22-30) 10/16/17 05:15 Anion Gap 13 mmol/L 10/16/17 05:15 BUN 12 mg/dL (9-20) 10/16/17 05:15 Creatinine 1.4 mg/dL (0.8-1.5) 10/16/17 05:15 Estimated GFR > 60 ml/min 10/16/17 05:15 BUN/Creatinine Ratio 9 % 10/16/17 05:15 Glucose 130 mg/dL (75-100) H 10/16/17 05:15 Calcium 8.1 mg/dL (8.4-10.2) L 10/16/17 05:15 Total Bilirubin 0.30 mg/dL (0.1-1.2) 10/16/17 05:15 AST 24 units/L (5-40) 10/16/17 05:15 ALT 11 units/L (7-56) 10/16/17 05:15 Alkaline Phosphatase 79 units/L (35-129) 10/16/17 05:15 Total Protein 7.3 g/dL (6.3-8.2) 10/16/17 05:15 Albumin 3.1 g/dL (3.9-5) L 10/16/17 05:15 Albumin/Globulin Ratio 0.7 % 10/16/17 05:15 Urine Color Yellow (Yellow) 10/16/17 09:13 Urine Turbidity Clear (Clear) 10/16/17 09:13 Urine pH 5.0 (5.0-7.0) 10/16/17 09:13 Ur Specific [place] 1.024 (1.003-1.030) 10/16/17 09:13 Urine Protein 100 mg/dl mg/dL (Negative) 10/16/17 09:13 Urine Glucose (UA) Neg mg/dL (Negative) 10/16/17 09:13 Urine Ketones Neg mg/dL (Negative) 10/16/17 09:13 Urine Blood Mod (Negative) 10/16/17 09:13 Urine Nitrite Neg (Negative) 10/16/17 09:13 Urine Bilirubin Neg (Negative) 10/16/17 09:13 Urine Urobilinogen < 2.0 mg/dL (<2.0) 10/16/17 09:13 Ur Leukocyte Esterase Sm (Negative) 10/16/17 09:13 Urine WBC (Auto) 46.0 /HPF (0.0-6.0) H 10/16/17 09:13 Urine RBC (Auto) 21.0 /HPF (0.0-6.0) 10/16/17 09:13 Urine Bacteria (Auto) 1+ /HPF (Negative) 10/16/17 09:13 Amorphous Crystals Few 10/16/17 09:13 Urine Mucus Few /HPF 10/16/17 09:13 Fluid Type Synovial 10/15/17 02:40 Fluid Color Yellow 10/15/17 02:40 Fluid Appearance Turbid 10/15/17 02:40 Fluid WBC 56930 /mm3 10/15/17 02:40 Fluid RBC 1000 /mm3 10/15/17 02:40 Fluid Seg Neutrophils 85.0 % 10/15/17 02:40 Fluid Lymphocytes 11.0 % 10/15/17 02:40 Fluid Reactive Lymphs 0 % 10/15/17 02:40 Fluid Monocytes 4.0 % 10/15/17 02:40 Fluid Eosinophils 0 % 10/15/17 02:40 Fluid Basophils 0 % 10/15/17 02:40 Fluid Comment Diff performed 10/15/17 02:40 Synovial Crystals Negative (NONE SEEN) 10/15/17 02:40
[2017-10-17] MEDS: PERCOCET 5/325 PO PRN ×4 (06:32→21:45)
[2017-10-17] MEDS: cefTRIAXone 2 GM in NACL 0.9% 20 ML IV SCH (06:33)
[2017-10-17] MEDS: HALFPRIN EC PO SCH (09:50)
[2017-10-17] MEDS: DITROPAN PO SCH ×2 (09:50→21:45)
[2017-10-17] MEDS: PREZISTA PO SCH (09:50)
[2017-10-17] MEDS: NORVIR PO SCH (09:51)
[2017-10-17] MEDS: DESCOVY PO SCH (09:52)
[2017-10-17] MEDS: NACL 0.9% 1000 ML 1,000 ML IV SCH (10:01)
--- NOTE | 2017-10-17 10:59 | Progress Note ---
Assessment and Plan Assessment and plan: Left knee septic arthritis -s/p joint aspiration -Continue IV antibiotics with vanc and rocephin due to allergy to penicillins -blood and synovial fluid cultures neg so far -Chlamydia/GC test pending -ortho surgery consult pending Sepsis sec to the septic arthritis -cont IV antibiotics -Blood cultures neg so far -ID consult pending BRENDON -improved on IVF -will cont to monitor cr elevel -avoid nephrotoxins H/o HIV/AIDS -cont HAART therapy HTN -stable Disp: d/c pt when medically stable History Interval history: Patient has no new complaints. His left knee pain has improved. Hospitalist Physical - Constitutional Vitals: Temp Pulse Resp BP Pulse Ox 100.1 F H 113 H 20 121/64 95 10/17/17 07:37 10/17/17 07:37 10/17/17 07:37 10/17/17 07:37 10/17/17 07:37 General appearance: Present: no acute distress - EENT Eyes: Present: PERRL, EOM intact ENT: hearing intact - Neck Neck: Present: supple - Respiratory Respiratory effort: normal Respiratory: bilateral: CTA - Cardiovascular Rhythm: other (tachycardia with regular rhythm) Heart Sounds: Present: S1 & S2 - Extremities Extremity abnormal: edema (left knee with warmth on palpation) - Abdominal General gastrointestinal: soft, non-tender, normal bowel sounds - Neurologic Neurologic: CNII-XII intact Results - Labs CBC & Chem 7: 10/16/17 05:15 10/16/17 05:15 Labs: Laboratory Last Values WBC 17.9 K/mm3 (4.5-11.0) H 10/16/17 05:15 RBC 4.30 M/mm3 (3.65-5.03) 10/16/17 05:15 Hgb 12.0 gm/dl (11.8-15.2) 10/16/17 05:15 Hct 37.3 % (35.5-45.6) 10/16/17 05:15 MCV 87 fl (84-94) 10/16/17 05:15 MCH 28 pg (28-32) 10/16/17 05:15 MCHC 32 % (32-34) 10/16/17 05:15 RDW 14.2 % (13.2-15.2) 10/16/17 05:15 Plt Count 304 K/mm3 (140-440) 10/16/17 05:15 [place] % (Auto) Telecommunications Manager 10/16/17 05:15 Add Manual Diff Complete 10/16/17 05:15 Total Counted 100 10/16/17 05:15 Seg Neuts % (Manual) 70.0 % (40.0-70.0) 10/16/17 05:15 Band Neutrophils % 1.0 % 10/16/17 05:15 Lymphocytes % (Manual) 11.0 % (13.4-35.0) L 10/16/17 05:15 Reactive Lymphs % (Man) 0 % 10/16/17 05:15 Monocytes % (Manual) 14.0 % (0.0-7.3) H 10/16/17 05:15 Eosinophils % (Manual) 2.0 % (0.0-4.3) 10/16/17 05:15 Basophils % (Manual) 0 % (0.0-1.8) 10/16/17 05:15 Metamyelocytes % 2.0 % 10/16/17 05:15 Myelocytes % 0 % 10/16/17 05:15 Promyelocytes % 0 % 10/16/17 05:15 Blast Cells % 0 % 10/16/17 05:15 Nucleated RBC % Not Reportable 10/16/17 05:15 Seg Neutrophils # Man 12.5 K/mm3 (1.8-7.7) H 10/16/17 05:15 Band Neutrophils # 0.2 K/mm3 10/16/17 05:15 Lymphocytes # (Manual) 2.0 K/mm3 (1.2-5.4) 10/16/17 05:15 Abs React Lymphs (Man) 0.0 K/mm3 10/16/17 05:15 Monocytes # (Manual) 2.5 K/mm3 (0.0-0.8) H 10/16/17 05:15 Eosinophils # (Manual) 0.4 K/mm3 (0.0-0.4) 10/16/17 05:15 Basophils # (Manual) 0.0 K/mm3 (0.0-0.1) 10/16/17 05:15 Metamyelocytes # 0.4 K/mm3 10/16/17 05:15 Myelocytes # 0.0 K/mm3 10/16/17 05:15 Promyelocytes # 0.0 K/mm3 10/16/17 05:15 Blast Cells # 0.0 K/mm3 10/16/17 05:15 WBC Morphology Not Reportable 10/16/17 05:15 Hypersegmented Neuts Not Reportable 10/16/17 05:15 Hyposegmented Neuts Not Reportable 10/16/17 05:15 Hypogranular Neuts Not Reportable 10/16/17 05:15 Smudge Cells Not Reportable 10/16/17 05:15 Toxic Granulation Not Reportable 10/16/17 05:15 Toxic Vacuolation Not Reportable 10/16/17 05:15 Dohle Bodies Not Reportable 10/16/17 05:15 Pelger-Huet Anomaly Not Reportable 10/16/17 05:15 Radha Rods Not Reportable 10/16/17 05:15 Platelet Estimate Appears normal 10/16/17 05:15 Clumped Platelets Not Reportable 10/16/17 05:15 Plt Clumps, EDTA Not Reportable 10/16/17 05:15 Large Platelets Not Reportable 10/16/17 05:15 Giant Platelets Not Reportable 10/16/17 05:15 Platelet Satelliting Not Reportable 10/16/17 05:15 Plt Morphology Comment Not Reportable 10/16/17 05:15 RBC Morphology Not Reportable 10/16/17 05:15 Dimorphic RBCs Not Reportable 10/16/17 05:15 Polychromasia Not Reportable 10/16/17 05:15 Hypochromasia 1+ 10/16/17 05:15 Poikilocytosis Not Reportable 10/16/17 05:15 Anisocytosis 1+ 10/16/17 05:15 Microcytosis Not Reportable 10/16/17 05:15 Macrocytosis Not Reportable 10/16/17 05:15 Spherocytes Not Reportable 10/16/17 05:15 Pappenheimer Bodies Not Reportable 10/16/17 05:15 Sickle Cells Not Reportable 10/16/17 05:15 Target Cells Not Reportable 10/16/17 05:15 Tear Drop Cells Not Reportable 10/16/17 05:15 Ovalocytes Not Reportable 10/16/17 05:15 Helmet Cells Not Reportable 10/16/17 05:15 [place] Bodies Not Reportable 10/16/17 05:15 [place] Rings Not Reportable 10/16/17 05:15 [place] Cells Not Reportable 10/16/17 05:15 Bite Cells Not Reportable 10/16/17 05:15 Crenated Cell Not Reportable 10/16/17 05:15 Elliptocytes Not Reportable 10/16/17 05:15 Acanthocytes (Spur) Not Reportable 10/16/17 05:15 Rouleaux Not Reportable 10/16/17 05:15 Hemoglobin C Crystals Not Reportable 10/16/17 05:15 Schistocytes Not Reportable 10/16/17 05:15 Malaria parasites Not Reportable 10/16/17 05:15 ESR 29 mm/Hr (0-20) 10/15/17 05:45 Raf Bodies Not Reportable 10/16/17 05:15 Hem Pathologist Commnt No 10/16/17 05:15 Sodium 134 mmol/L (137-145) L 10/16/17 05:15 Potassium 4.1 mmol/L (3.6-5.0) 10/16/17 05:15 Chloride 97.1 mmol/L (98-107) L 10/16/17 05:15 Carbon Dioxide 28 mmol/L (22-30) 10/16/17 05:15 Anion Gap 13 mmol/L 10/16/17 05:15 BUN 12 mg/dL (9-20) 10/16/17 05:15 Creatinine 1.4 mg/dL (0.8-1.5) 10/16/17 05:15 Estimated GFR > 60 ml/min 10/16/17 05:15 BUN/Creatinine Ratio 9 % 10/16/17 05:15 Glucose 130 mg/dL (75-100) H 10/16/17 05:15 Calcium 8.1 mg/dL (8.4-10.2) L 10/16/17 05:15 Total Bilirubin 0.30 mg/dL (0.1-1.2) 10/16/17 05:15 AST 24 units/L (5-40) 10/16/17 05:15 ALT 11 units/L (7-56) 10/16/17 05:15 Alkaline Phosphatase 79 units/L (35-129) 10/16/17 05:15 Total Protein 7.3 g/dL (6.3-8.2) 10/16/17 05:15 Albumin 3.1 g/dL (3.9-5) L 10/16/17 05:15 Albumin/Globulin Ratio 0.7 % 10/16/17 05:15 Urine Color Yellow (Yellow) 10/16/17 09:13 Urine Turbidity Clear (Clear) 10/16/17 09:13 Urine pH 5.0 (5.0-7.0) 10/16/17 09:13 Ur Specific [place] 1.024 (1.003-1.030) 10/16/17 09:13 Urine Protein 100 mg/dl mg/dL (Negative) 10/16/17 09:13 Urine Glucose (UA) Neg mg/dL (Negative) 10/16/17 09:13 Urine Ketones Neg mg/dL (Negative) 10/16/17 09:13 Urine Blood Mod (Negative) 10/16/17 09:13 Urine Nitrite Neg (Negative) 10/16/17 09:13 Urine Bilirubin Neg (Negative) 10/16/17 09:13 Urine Urobilinogen < 2.0 mg/dL (<2.0) 10/16/17 09:13 Ur Leukocyte Esterase Sm (Negative) 10/16/17 09:13 Urine WBC (Auto) 46.0 /HPF (0.0-6.0) H 10/16/17 09:13 Urine RBC (Auto) 21.0 /HPF (0.0-6.0) 10/16/17 09:13 Urine Bacteria (Auto) 1+ /HPF (Negative) 10/16/17 09:13 Amorphous Crystals Few 10/16/17 09:13 Urine Mucus Few /HPF 10/16/17 09:13 Fluid Type Synovial 10/15/17 02:40 Fluid Color Yellow 10/15/17 02:40 Fluid Appearance Turbid 10/15/17 02:40 Fluid WBC 44234 /mm3 10/15/17 02:40 Fluid RBC 1000 /mm3 10/15/17 02:40 Fluid Seg Neutrophils 85.0 % 10/15/17 02:40 Fluid Lymphocytes 11.0 % 10/15/17 02:40 Fluid Reactive Lymphs 0 % 10/15/17 02:40 Fluid Monocytes 4.0 % 10/15/17 02:40 Fluid Eosinophils 0 % 10/15/17 02:40 Fluid Basophils 0 % 10/15/17 02:40 Fluid Comment Diff performed 10/15/17 02:40 Synovial Crystals Negative (NONE SEEN) 10/15/17 02:40
[2017-10-17] MEDS: VANCOMYCIN 1,750 MG in NACL 0.9% 500 ML 500 ML IV SCH ×2 (12:23→21:45)
--- NOTE | 2017-10-17 13:32 | Consultation ---
History of Present Illness - Reason for Consult Consult date: 10/17/17 left knee septic arthritis / HIV Requesting physician: COLT HECK - History of Present Illness 52 years old male with history of HIV infection since 2000, currently on Descovy , Norvir and Prezista, sees HIV clinic [facility] in [place], [place]. Last viral load was undetectable and CD4 573. Patient was in his normal state of health until October 12 when he noted left knee tenderness, swelling and subjective fever. Patient noted progression of the knee is swelling and pain during the last week. He also noted bilateral red eyes and tearing. He denies any sick contacts. He denies any injury or falls. He has one sexual partner uses condoms always he is a homosexual male. Of note, 2 weeks before symptoms started he experienced now nausea and acute diarrhea for 4 days. He did not seek for medical outpatient and on diarrhea is better but still he has loose stools. In the ED, initial temperature was 99.8, heart rate 103, respiration 18, O2 sat 93, blood pressure 136/78. Initial white count 19.1. Hemoglobin 12.9. Platelets 305. Creatinine 1.7. Urinalysis showed 46 white blood cells and a small leukocyte esterase. Synovial fluid showed 87,750 white blood cells and 85 % segs, no crystals. Microbiology: Blood cultures: 10/15 ngtd Synovial cultures: many PMNs no organisms. Current Antimicrobials: Ceftriaxone 10/16 Vancomycin 10/16 Previous Antimicrobials: 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) Social history: other (he denies tobacco, alcohol or illicit drug use) Family history: other (reviewed and noncontributory) Medications and Allergies Allergies Allergy/AdvReac Type Severity Reaction Status Date / Time Penicillins Allergy Rash Verified 09/12/13 22:45 Home Medications Medication Instructions Recorded Confirmed Last Taken Type Naproxen [Naprosyn] 500 mg PO BID #40 tablet 10/13/17 10/15/17 1 Day Ago Rx ~10/14/17 Oxybutynin [Ditropan] 5 mg PO BID #20 tablet 10/13/17 10/15/17 1 Day Ago Rx ~10/14/17 traMADol [Ultram 50 MG tab] 50 mg PO Q6HR PRN #20 tablet 10/13/17 10/15/17 1 Day Ago Rx ~10/14/17 Aspirin [Aspir-Low] 81 mg PO DAILY 10/15/17 10/15/17 1 Day Ago History ~10/14/17 Descovy 200-25 mg Tablet 200 mg PO DAILY 10/15/17 10/15/17 10/14/17 History Hydrochlorothiazide [HCTZ] 25 mg PO QDAY 10/15/17 10/15/17 1 Day Ago History ~10/14/17 Lisinopril [Zestril] 10 mg PO DAILY 10/15/17 10/15/17 1 Day Ago History ~10/14/17 Norvir 100 mg PO DAILY 10/15/17 10/15/17 10/14/17 History Prezista 800 mg PO DAILY 10/15/17 10/15/17 10/14/17 History Active Meds: Active Medications Aspirin (Halfprin Ec) 81 mg PO DAILY [facility] Last Admin: 10/17/17 09:50 Dose: 81 mg Darunavir (Prezista) 800 mg PO QDAY [facility] Last Admin: 10/17/17 09:50 Dose: 800 mg Ceftriaxone Sodium 2 gm/ (Sodium Chloride) 20 mls @ 2 mls/min IV Q24H [facility] Last Admin: 10/17/17 06:33 Dose: 2 mls/min Vancomycin HCl 1,750 mg/ (Sodium Chloride) 517.5 mls @ 333.333 mls/hr IV Q12HR [facility] Last Admin: 10/17/17 12:23 Dose: 333.333 mls/hr Miscellaneous Medication (Descovy 200-25 Mg Tablet) 200 mg PO DAILY [facility] Last Admin: 10/17/17 09:52 Dose: 200 mg Morphine Sulfate (Morphine) 2 mg IV Q4H PRN PRN Reason: Pain, Moderate (4-6) Oxybutynin Chloride (Ditropan) 5 mg PO BID [facility] Last Admin: 10/17/17 09:50 Dose: 5 mg Oxycodone/Acetaminophen (Percocet 5/325) 2 tab PO Q4H PRN PRN Reason: Pain, Moderate (4-6) Last Admin: 10/17/17 10:48 Dose: 2 tab Ritonavir (Norvir) 100 mg PO DAILY [facility] Last Admin: 10/17/17 09:51 Dose: 100 mg Vancomycin HCl (Vancomycin Pharmacy To Dose) 1 each IV PKCONSULT CESAR; Protocol Review of Systems All systems: negative (as per HPI rest of 10 point review systems negative) Physical Examination - Physical Exam Narrative exam: General appearance: Alert in NAD, conversant Eyes: anicteric sclerae, + bilaterally injected erythematous conjunctiva; no lid -lag; PERRLA HENT: Atraumatic; oropharynx clear with moist mucous membranes and no mucosal ulcerations/no oral thrush; normal hard and soft palate. Normal external ears. Neck: Trachea midline; supple, no thyromegaly or lymphadenopathy Lungs: CTA, with normal respiratory effort and no intercostal retractions CV: RRR, no murmurs Abdomen: Soft, non-tender; no masses or hepatosplenomegaly Extremities: Left knee with marked swelling, erythema, heat, tenderness. Right knee with mild edema and tenderness Skin: Normal temperature, turgor and texture; no rash, ulcers or subcutaneous nodules Psych: Appropriate affect, alert and oriented to person, place and time. Neuro: alert and oriented x 3. Moving all extermities Lines: No CVL / PICC - Constitutional Vitals: Vital Signs Temp Pulse Resp BP Pulse Ox 98.9 F 108 H 20 142/73 94 10/17/17 12:01 10/17/17 12:01 10/17/17 12:01 10/17/17 12:01 10/17/17 12:01 Temperature -Last 24 Hours Temperature 98.9 F Temperature 100.1 F Temperature 100.0 F Temperature 98.7 F Temperature 98.2 F Results - Labs CBC & Chem 7: 10/16/17 05:15 10/16/17 05:15 Assessment and Plan Assessment: 1) SIRS: Present on admission, manifested by fever at home, tachycardia, leukocytosis. Etiology left knee arthritis +/- UTI +/- conjunctivitis +/- 2) Left knee arthritis: unclear etiology ? septic vs. inflammatory (associated with Cronh's or UC) vs. reactive (post-diarrhea) -Synovial fluid showed 87,750 white blood cells and 85% segs, no crystals. Gram stain many WBC no organisms. 3) UTI: urine cx 10-100K mixed bacteria 4) Acute Diarrhea: started 2 weeks ago, no recent intake of antibiotics 5) HIV infection: since 2000, currently on Descovy, Norvir and Prezista, sees HIV clinic [facility] in [place], [place]. Last viral load was undetectable and CD4 573. 6) Edilberto conjunctivitis Plan: -Ortho consult -GI med consult in view of diarrhea and arthritis ? inflammatory (associated with Cronh's or UC) vs. reactive (post-diarrhea) -Obtain HLA-B27, CRP, KELLIE, ANCA -F/u synovial fluid cultures -continue ceftriaxone and vancomycin for now Thank you for your consultation, will follow up with you. Padmini Curry MD Infectious Diseases Specialist [facility] ([facility] M [phone] O [phone]
[2017-10-17] MEDS: MORPHINE IV PRN (16:13)
--- NOTE | 2017-10-17 16:35 | XRay Report ---
FINAL REPORT EXAM: XR KNEE BILAT 3V HISTORY: nasreen knee swelling L> R TECHNIQUE: Bilateral knees three views right and three views left PRIORS: None. FINDINGS: There is mild bilateral tibiofemoral joint space narrowing. There are moderate bilateral joint effusions more prominent on the left than on the right. Patella demonstrates normal position. No acute fractures or erosive bony changes are identified. IMPRESSION: Bilateral joint effusions Mild bilateral degenerative tibiofemoral joint space narrowing
[2017-10-17] MEDS ORDERED: TYLENOL PO PRN (19:27)
[2017-10-18] MEDS: MORPHINE IV PRN (03:19)
[2017-10-18] MEDS: PERCOCET 5/325 PO PRN ×4 (05:10→22:17)
[2017-10-18] MEDS: cefTRIAXone 2 GM in NACL 0.9% 20 ML IV SCH (05:42)
[2017-10-18 06:34] LABS: Hematocrit 33.4 % (35.5-45.6); Mean Corpuscular HGB Conc 33 % (32-34); Mean Corpuscular Hemoglobin 28 pg (28-32); Mean Corpuscular Volume 85 fl (84-94); Platelet Count 344 K/mm3 (140-440); Red Blood Count 3.92 M/mm3 (3.65-5.03); Red Cell Distribution Width 14.3 % (13.2-15.2)
[2017-10-18 06:52] LABS: BUN/Creatinine Ratio 7; Blood Urea Nitrogen 10 mg/dL (9-20); Calcium 8.5 mg/dL (8.4-10.2); Hemolysis Index 1
[2017-10-18 07:52] LABS: Band Neutrophils # (Manual) 0.2 K/mm3; Basophils % (Manual) 0 % (0.0-1.8); Total Cells Counted 100
[2017-10-18 07:53] LABS: Anisocytosis 1+; Giant Platelets Few; Platelet Estimate Cons
[2017-10-18] MEDS: HALFPRIN EC PO SCH (10:20)
[2017-10-18] MEDS: DITROPAN PO SCH ×2 (10:20→22:18)
[2017-10-18] MEDS: NORVIR PO SCH ×2 (10:21→10:22)
[2017-10-18] MEDS: PREZISTA PO SCH (10:23)
[2017-10-18] MEDS: VANCOMYCIN 1,750 MG in NACL 0.9% 500 ML 500 ML IV SCH ×2 (10:24→22:18)
[2017-10-18] MEDS: DESCOVY PO SCH (10:24)
--- NOTE | 2017-10-18 12:16 | Progress Note ---
Assessment and Plan Assessment: 1) SIRS: Present on admission, manifested by fever at home, tachycardia, leukocytosis. Etiology left knee arthritis +/- UTI +/- conjunctivitis +/- 2) Left knee arthritis: unclear etiology ? septic vs. inflammatory (associated with Cronh's or UC) vs. reactive (post-diarrhea) -Synovial fluid showed 87,750 white blood cells and 85% segs, no crystals. Gram stain many WBC no organisms. -CRP=30 3) UTI: urine cx 10-100K mixed bacteria 4) Acute Diarrhea: started 2 weeks ago, no recent intake of antibiotics 5) HIV infection: since 2000, currently on Descovy, Norvir and Prezista, sees HIV clinic [facility] in [place], [place]. Last viral load was undetectable and CD4 573. 6) Edilberto conjunctivitis Plan: -Consider rheum consult Ortho consult - pending -GI med consult in view of diarrhea and arthritis ? inflammatory (associated with Cronh's or UC) vs. reactive (post-diarrhea) -F/u HLA-B27, KELLIE, ANCA -F/u synovial fluid cultures -continue ceftriaxone and vancomycin - D3 -monitor fever Thank you for your consultation, will follow up with you. Padmini Curry MD Infectious Diseases Specialist [facility] ([facility] M [phone] O [phone] Subjective Date of service: 10/18/17 Principal diagnosis: SIRS Interval history: C/o edilberto knee pain and swelling and sweats tmax 102 Microbiology: Blood cultures: 10/15 ngtd Synovial cultures: many PMNs no organisms. Urien cx: 10-100K mixed Current Antimicrobials: Ceftriaxone 10/16 Vancomycin 10/16 Previous Antimicrobials: Objective - Exam Narrative Exam: General appearance: Alert in NAD, conversant Eyes: anicteric sclerae, + bilaterally injected erythematous conjunctiva; no lid -lag; PERRLA HENT: Atraumatic; oropharynx clear with moist mucous membranes and no mucosal ulcerations/no oral thrush; normal hard and soft palate. Normal external ears. Neck: Trachea midline; supple, no thyromegaly or lymphadenopathy Lungs: CTA, with normal respiratory effort and no intercostal retractions CV: RRR, no murmurs Abdomen: Soft, non-tender; no masses or hepatosplenomegaly Extremities: Left knee with marked swelling, erythema, heat, tenderness. Right knee with more edema and tenderness Skin: Normal temperature, turgor and texture; no rash, ulcers or subcutaneous nodules Psych: Appropriate affect, alert and oriented to person, place and time. Neuro: alert and oriented x 3. Moving all extermities Lines: No CVL / PICC - Constitutional Vitals: Vital Signs Temp Pulse Resp BP Pulse Ox 99.7 F H 107 H 14 164/91 93 10/18/17 07:53 10/18/17 07:53 10/18/17 07:53 10/18/17 07:53 10/18/17 07:53 Temperature -Last 24 Hours Temperature 99.7 F Temperature 99.0 F Temperature 102.3 F Temperature 98.7 F - Labs CBC & Chem 7: 10/18/17 05:15 10/18/17 05:15 Labs: Abnormal lab results 10/17/17 10/18/17 10/18/17 Range/Units 14:14 05:15 05:15 WBC 18.1 H (4.5-11.0) K/mm3 Hgb 11.0 L (11.8-15.2) gm/dl Hct 33.4 L (35.5-45.6) % Seg Neuts % (Manual) 79.0 H (40.0-70.0) % Lymphocytes % (Manual) 7.0 L (13.4-35.0) % Monocytes % (Manual) 12.0 H (0.0-7.3) % Seg Neutrophils # Man 14.3 H (1.8-7.7) K/mm3 Monocytes # (Manual) 2.2 H (0.0-0.8) K/mm3 Chloride 97.7 L (98-107) mmol/L Glucose 120 H (75-100) mg/dL C-Reactive Protein 30.40 H (0.00-1.30) mg/dL
--- NOTE | 2017-10-18 12:30 | Progress Note ---
Assessment and Plan Assessment and plan: Bilateral knee septic arthritis -s/p joint aspiration -Continue IV antibiotics with vanc and rocephin due to allergy to penicillins -blood and synovial fluid cultures neg so far -Chlamydia/GC test pending -ortho surgery consult pending -ID recommended KELLIE, C3, C4 and HLA-B27 to assess for connective tissue dx Sepsis sec to the septic arthritis -cont IV antibiotics -Blood cultures neg so far -ID following BRENDON -resolved H/o HIV/AIDS -cont HAART therapy HTN, uncontrolled -oral metoprolol started Bilateral conjuctivitis, viral -resolving Hx of diarrhea -resolved Disp: d/c pt when medically stable History Interval history: Pt has no new complaints. He stated his eye tearing and diarrhea have resolved. Hospitalist Physical - Constitutional Vitals: Temp Pulse Resp BP Pulse Ox 99.7 F H 107 H 14 164/91 93 10/18/17 07:53 10/18/17 07:53 10/18/17 07:53 10/18/17 07:53 10/18/17 07:53 General appearance: Present: no acute distress - EENT Eyes: Present: PERRL, EOM intact ENT: hearing intact, clear oral mucosa - Neck Neck: Present: supple - Respiratory Respiratory effort: normal Respiratory: bilateral: CTA - Cardiovascular Rhythm: regular Heart Sounds: Present: S1 & S2 - Extremities Extremity abnormal: edema (in both knees) - Abdominal General gastrointestinal: soft, non-tender, normal bowel sounds - Neurologic Neurologic: CNII-XII intact Results - Labs CBC & Chem 7: 10/18/17 05:15 10/18/17 05:15 Labs: Laboratory Last Values WBC 18.1 K/mm3 (4.5-11.0) H 10/18/17 05:15 RBC 3.92 M/mm3 (3.65-5.03) 10/18/17 05:15 Hgb 11.0 gm/dl (11.8-15.2) L 10/18/17 05:15 Hct 33.4 % (35.5-45.6) L 10/18/17 05:15 MCV 85 fl (84-94) 10/18/17 05:15 MCH 28 pg (28-32) 10/18/17 05:15 MCHC 33 % (32-34) 10/18/17 05:15 RDW 14.3 % (13.2-15.2) 10/18/17 05:15 Plt Count 344 K/mm3 (140-440) 10/18/17 05:15 [place] % (Auto) Tester Operator Helper 10/18/17 05:15 Add Manual Diff Complete 10/18/17 05:15 Total Counted 100 10/18/17 05:15 Seg Neuts % (Manual) 79.0 % (40.0-70.0) H 10/18/17 05:15 Band Neutrophils % 1.0 % 10/18/17 05:15 Lymphocytes % (Manual) 7.0 % (13.4-35.0) L 10/18/17 05:15 Reactive Lymphs % (Man) 0 % 10/18/17 05:15 Monocytes % (Manual) 12.0 % (0.0-7.3) H 10/18/17 05:15 Eosinophils % (Manual) 1.0 % (0.0-4.3) 10/18/17 05:15 Basophils % (Manual) 0 % (0.0-1.8) 10/18/17 05:15 Metamyelocytes % 0 % 10/18/17 05:15 Myelocytes % 0 % 10/18/17 05:15 Promyelocytes % 0 % 10/18/17 05:15 Blast Cells % 0 % 10/18/17 05:15 Nucleated RBC % Not Reportable 10/18/17 05:15 Seg Neutrophils # Man 14.3 K/mm3 (1.8-7.7) H 10/18/17 05:15 Band Neutrophils # 0.2 K/mm3 10/18/17 05:15 Lymphocytes # (Manual) 1.3 K/mm3 (1.2-5.4) 10/18/17 05:15 Abs React Lymphs (Man) 0.0 K/mm3 10/18/17 05:15 Monocytes # (Manual) 2.2 K/mm3 (0.0-0.8) H 10/18/17 05:15 Eosinophils # (Manual) 0.2 K/mm3 (0.0-0.4) 10/18/17 05:15 Basophils # (Manual) 0.0 K/mm3 (0.0-0.1) 10/18/17 05:15 Metamyelocytes # 0.0 K/mm3 10/18/17 05:15 Myelocytes # 0.0 K/mm3 10/18/17 05:15 Promyelocytes # 0.0 K/mm3 10/18/17 05:15 Blast Cells # 0.0 K/mm3 10/18/17 05:15 WBC Morphology Not Reportable 10/18/17 05:15 Hypersegmented Neuts Not Reportable 10/18/17 05:15 Hyposegmented Neuts Not Reportable 10/18/17 05:15 Hypogranular Neuts Not Reportable 10/18/17 05:15 Smudge Cells Not Reportable 10/18/17 05:15 Toxic Granulation Not Reportable 10/18/17 05:15 Toxic Vacuolation Not Reportable 10/18/17 05:15 Dohle Bodies Not Reportable 10/18/17 05:15 Pelger-Huet Anomaly Not Reportable 10/18/17 05:15 Radha Rods Not Reportable 10/18/17 05:15 Platelet Estimate Cons 10/18/17 05:15 Clumped Platelets Not Reportable 10/18/17 05:15 Plt Clumps, EDTA Not Reportable 10/18/17 05:15 Large Platelets Not Reportable 10/18/17 05:15 Giant Platelets Few 10/18/17 05:15 Platelet Satelliting Not Reportable 10/18/17 05:15 Plt Morphology Comment Not Reportable 10/18/17 05:15 RBC Morphology Not Reportable 10/18/17 05:15 Dimorphic RBCs Not Reportable 10/18/17 05:15 Polychromasia Not Reportable 10/18/17 05:15 Hypochromasia Not Reportable 10/18/17 05:15 Poikilocytosis Not Reportable 10/18/17 05:15 Anisocytosis 1+ 10/18/17 05:15 Microcytosis Not Reportable 10/18/17 05:15 Macrocytosis Not Reportable 10/18/17 05:15 Spherocytes Not Reportable 10/18/17 05:15 Pappenheimer Bodies Not Reportable 10/18/17 05:15 Sickle Cells Not Reportable 10/18/17 05:15 Target Cells Not Reportable 10/18/17 05:15 Tear Drop Cells Not Reportable 10/18/17 05:15 Ovalocytes Not Reportable 10/18/17 05:15 Helmet Cells Not Reportable 10/18/17 05:15 [place] Bodies Not Reportable 10/18/17 05:15 Garber Rings Not Reportable 10/18/17 05:15 Melani Cells Not Reportable 10/18/17 05:15 Bite Cells Not Reportable 10/18/17 05:15 Crenated Cell Not Reportable 10/18/17 05:15 Elliptocytes Not Reportable 10/18/17 05:15 Acanthocytes (Spur) Not Reportable 10/18/17 05:15 Rouleaux Not Reportable 10/18/17 05:15 Hemoglobin C Crystals Not Reportable 10/18/17 05:15 Schistocytes Not Reportable 10/18/17 05:15 Malaria parasites Not Reportable 10/18/17 05:15 ESR 29 mm/Hr (0-20) 10/15/17 05:45 Raf Bodies Not Reportable 10/18/17 05:15 Hem Pathologist Commnt No 10/18/17 05:15 Sodium 137 mmol/L (137-145) 10/18/17 05:15 Potassium 3.8 mmol/L (3.6-5.0) 10/18/17 05:15 Chloride 97.7 mmol/L (98-107) L 10/18/17 05:15 Carbon Dioxide 25 mmol/L (22-30) 10/18/17 05:15 Anion Gap 18 mmol/L 10/18/17 05:15 BUN 10 mg/dL (9-20) 10/18/17 05:15 Creatinine 1.4 mg/dL (0.8-1.5) 10/18/17 05:15 Estimated GFR > 60 ml/min 10/18/17 05:15 BUN/Creatinine Ratio 7 % 10/18/17 05:15 Glucose 120 mg/dL (75-100) H 10/18/17 05:15 Calcium 8.5 mg/dL (8.4-10.2) 10/18/17 05:15 Total Bilirubin 0.30 mg/dL (0.1-1.2) 10/16/17 05:15 AST 24 units/L (5-40) 10/16/17 05:15 ALT 11 units/L (7-56) 10/16/17 05:15 Alkaline Phosphatase 79 units/L (35-129) 10/16/17 05:15 C-Reactive Protein 30.40 mg/dL (0.00-1.30) H 10/17/17 14:14 Total Protein 7.3 g/dL (6.3-8.2) 10/16/17 05:15 Albumin 3.1 g/dL (3.9-5) L 10/16/17 05:15 Albumin/Globulin Ratio 0.7 % 10/16/17 05:15 Urine Color Yellow (Yellow) 10/16/17 09:13 Urine Turbidity Clear (Clear) 10/16/17 09:13 Urine pH 5.0 (5.0-7.0) 10/16/17 09:13 Ur Specific [place] 1.024 (1.003-1.030) 10/16/17 09:13 Urine Protein 100 mg/dl mg/dL (Negative) 10/16/17 09:13 Urine Glucose (UA) Neg mg/dL (Negative) 10/16/17 09:13 Urine Ketones Neg mg/dL (Negative) 10/16/17 09:13 Urine Blood Mod (Negative) 10/16/17 09:13 Urine Nitrite Neg (Negative) 10/16/17 09:13 Urine Bilirubin Neg (Negative) 10/16/17 09:13 Urine Urobilinogen < 2.0 mg/dL (<2.0) 10/16/17 09:13 Ur Leukocyte Esterase Sm (Negative) 10/16/17 09:13 Urine WBC (Auto) 46.0 /HPF (0.0-6.0) H 10/16/17 09:13 Urine RBC (Auto) 21.0 /HPF (0.0-6.0) 10/16/17 09:13 Urine Bacteria (Auto) 1+ /HPF (Negative) 10/16/17 09:13 Amorphous Crystals Few 10/16/17 09:13 Urine Mucus Few /HPF 10/16/17 09:13 Fluid Type Synovial 10/15/17 02:40 Fluid Color Yellow 10/15/17 02:40 Fluid Appearance Turbid 10/15/17 02:40 Fluid WBC 80936 /mm3 10/15/17 02:40 Fluid RBC 1000 /mm3 10/15/17 02:40 Fluid Seg Neutrophils 85.0 % 10/15/17 02:40 Fluid Lymphocytes 11.0 % 10/15/17 02:40 Fluid Reactive Lymphs 0 % 10/15/17 02:40 Fluid Monocytes 4.0 % 10/15/17 02:40 Fluid Eosinophils 0 % 10/15/17 02:40 Fluid Basophils 0 % 10/15/17 02:40 Fluid Comment Diff performed 10/15/17 02:40 Synovial Crystals Negative (NONE SEEN) 10/15/17 02:40
[2017-10-18] MEDS ORDERED: APRESOLINE IV PRN (12:31)
[2017-10-18] MEDS: LOPRESSOR PO SCH ×2 (13:31→22:18)
[2017-10-19] MEDS: PERCOCET 5/325 PO PRN ×5 (02:29→23:39)
[2017-10-19] MEDS: cefTRIAXone 2 GM in NACL 0.9% 20 ML IV SCH (05:55)
--- NOTE | 2017-10-19 09:58 | Progress Note ---
<SHAN PEREZ - Last Filed: 10/19/17 12:50> Assessment and Plan Assessment and plan: Bilateral knee septic arthritis s/p joint aspiration - Gram stain showed many WBC no organisms, continue IV antibiotics with vanc and rocephin due to allergy to penicillins Chlamydia/GC test pending, ID following, rec KELLIE, C3, C4 and HLA-B27 to assess for connective tissue dx ortho consult pending Sepsis sec to the septic arthritis Improving, afebrile, cont IV antibiotics, Blood cultures neg so far ID following BRENDON resolved H/o HIV/AIDS cont HAART therapy HTN, uncontrolled Continue antihypertensives Bilateral conjuctivitis, viral resolving Hx of diarrhea resolved DVT prophylaxis SCDs History Interval history: Patient seen and examined. Mildly distressed with bilateral knee pain 02/04. Labs , and nursing notes reviewed. Hospitalist Physical - Constitutional Vitals: Temp Pulse Resp BP Pulse Ox 99.0 F 98 H 18 147/79 93 10/19/17 08:34 10/19/17 08:34 10/19/17 08:34 10/19/17 08:34 10/19/17 08:34 General appearance: Present: mild distress, well-nourished - EENT Eyes: Present: PERRL, EOM intact ENT: hearing intact, clear oral mucosa - Neck Neck: Present: supple, normal ROM - Respiratory Respiratory effort: normal Respiratory: bilateral: CTA - Cardiovascular Rhythm: regular Heart Sounds: Present: S1 & S2 - Extremities Extremities: no ischemia Extremity abnormal: edema (bilateral knee) - Abdominal General gastrointestinal: soft, non-tender, non-distended - Integumentary Integumentary: Present: clear, warm, dry Results - Labs CBC & Chem 7: 10/18/17 05:15 10/18/17 05:15 Labs: Laboratory Last Values WBC 18.1 K/mm3 (4.5-11.0) H 10/18/17 05:15 RBC 3.92 M/mm3 (3.65-5.03) 10/18/17 05:15 Hgb 11.0 gm/dl (11.8-15.2) L 10/18/17 05:15 Hct 33.4 % (35.5-45.6) L 10/18/17 05:15 MCV 85 fl (84-94) 10/18/17 05:15 MCH 28 pg (28-32) 10/18/17 05:15 MCHC 33 % (32-34) 10/18/17 05:15 RDW 14.3 % (13.2-15.2) 10/18/17 05:15 Plt Count 344 K/mm3 (140-440) 10/18/17 05:15 [place] % (Auto) Spiritual Minister 10/18/17 05:15 Add Manual Diff Complete 10/18/17 05:15 Total Counted 100 10/18/17 05:15 Seg Neuts % (Manual) 79.0 % (40.0-70.0) H 10/18/17 05:15 Band Neutrophils % 1.0 % 10/18/17 05:15 Lymphocytes % (Manual) 7.0 % (13.4-35.0) L 10/18/17 05:15 Reactive Lymphs % (Man) 0 % 10/18/17 05:15 Monocytes % (Manual) 12.0 % (0.0-7.3) H 10/18/17 05:15 Eosinophils % (Manual) 1.0 % (0.0-4.3) 10/18/17 05:15 Basophils % (Manual) 0 % (0.0-1.8) 10/18/17 05:15 Metamyelocytes % 0 % 10/18/17 05:15 Myelocytes % 0 % 10/18/17 05:15 Promyelocytes % 0 % 10/18/17 05:15 Blast Cells % 0 % 10/18/17 05:15 Nucleated RBC % Not Reportable 10/18/17 05:15 Seg Neutrophils # Man 14.3 K/mm3 (1.8-7.7) H 10/18/17 05:15 Band Neutrophils # 0.2 K/mm3 10/18/17 05:15 Lymphocytes # (Manual) 1.3 K/mm3 (1.2-5.4) 10/18/17 05:15 Abs React Lymphs (Man) 0.0 K/mm3 10/18/17 05:15 Monocytes # (Manual) 2.2 K/mm3 (0.0-0.8) H 10/18/17 05:15 Eosinophils # (Manual) 0.2 K/mm3 (0.0-0.4) 10/18/17 05:15 Basophils # (Manual) 0.0 K/mm3 (0.0-0.1) 10/18/17 05:15 Metamyelocytes # 0.0 K/mm3 10/18/17 05:15 Myelocytes # 0.0 K/mm3 10/18/17 05:15 Promyelocytes # 0.0 K/mm3 10/18/17 05:15 Blast Cells # 0.0 K/mm3 10/18/17 05:15 WBC Morphology Not Reportable 10/18/17 05:15 Hypersegmented Neuts Not Reportable 10/18/17 05:15 Hyposegmented Neuts Not Reportable 10/18/17 05:15 Hypogranular Neuts Not Reportable 10/18/17 05:15 Smudge Cells Not Reportable 10/18/17 05:15 Toxic Granulation Not Reportable 10/18/17 05:15 Toxic Vacuolation Not Reportable 10/18/17 05:15 Dohle Bodies Not Reportable 10/18/17 05:15 Pelger-Huet Anomaly Not Reportable 10/18/17 05:15 Radha Rods Not Reportable 10/18/17 05:15 Platelet Estimate Cons 10/18/17 05:15 Clumped Platelets Not Reportable 10/18/17 05:15 Plt Clumps, EDTA Not Reportable 10/18/17 05:15 Large Platelets Not Reportable 10/18/17 05:15 Giant Platelets Few 10/18/17 05:15 Platelet Satelliting Not Reportable 10/18/17 05:15 Plt Morphology Comment Not Reportable 10/18/17 05:15 RBC Morphology Not Reportable 10/18/17 05:15 Dimorphic RBCs Not Reportable 10/18/17 05:15 Polychromasia Not Reportable 10/18/17 05:15 Hypochromasia Not Reportable 10/18/17 05:15 Poikilocytosis Not Reportable 10/18/17 05:15 Anisocytosis 1+ 10/18/17 05:15 Microcytosis Not Reportable 10/18/17 05:15 Macrocytosis Not Reportable 10/18/17 05:15 Spherocytes Not Reportable 10/18/17 05:15 Pappenheimer Bodies Not Reportable 10/18/17 05:15 Sickle Cells Not Reportable 10/18/17 05:15 Target Cells Not Reportable 10/18/17 05:15 Tear Drop Cells Not Reportable 10/18/17 05:15 Ovalocytes Not Reportable 10/18/17 05:15 Helmet Cells Not Reportable 10/18/17 05:15 [place] Bodies Not Reportable 10/18/17 05:15 [place] Rings Not Reportable 10/18/17 05:15 Bath Cells Not Reportable 10/18/17 05:15 Bite Cells Not Reportable 10/18/17 05:15 Crenated Cell Not Reportable 10/18/17 05:15 Elliptocytes Not Reportable 10/18/17 05:15 Acanthocytes (Spur) Not Reportable 10/18/17 05:15 Rouleaux Not Reportable 10/18/17 05:15 Hemoglobin C Crystals Not Reportable 10/18/17 05:15 Schistocytes Not Reportable 10/18/17 05:15 Malaria parasites Not Reportable 10/18/17 05:15 ESR 29 mm/Hr (0-20) 10/15/17 05:45 Raf Bodies Not Reportable 10/18/17 05:15 Hem Pathologist Commnt No 10/18/17 05:15 Sodium 137 mmol/L (137-145) 10/18/17 05:15 Potassium 3.8 mmol/L (3.6-5.0) 10/18/17 05:15 Chloride 97.7 mmol/L (98-107) L 10/18/17 05:15 Carbon Dioxide 25 mmol/L (22-30) 10/18/17 05:15 Anion Gap 18 mmol/L 10/18/17 05:15 BUN 10 mg/dL (9-20) 10/18/17 05:15 Creatinine 1.4 mg/dL (0.8-1.5) 10/18/17 05:15 Estimated GFR > 60 ml/min 10/18/17 05:15 BUN/Creatinine Ratio 7 % 10/18/17 05:15 Glucose 120 mg/dL (75-100) H 10/18/17 05:15 Calcium 8.5 mg/dL (8.4-10.2) 10/18/17 05:15 Total Bilirubin 0.30 mg/dL (0.1-1.2) 10/16/17 05:15 AST 24 units/L (5-40) 10/16/17 05:15 ALT 11 units/L (7-56) 10/16/17 05:15 Alkaline Phosphatase 79 units/L (35-129) 10/16/17 05:15 C-Reactive Protein 30.40 mg/dL (0.00-1.30) H 10/17/17 14:14 Total Protein 7.3 g/dL (6.3-8.2) 10/16/17 05:15 Albumin 3.1 g/dL (3.9-5) L 10/16/17 05:15 Albumin/Globulin Ratio 0.7 % 10/16/17 05:15 Urine Color Yellow (Yellow) 10/16/17 09:13 Urine Turbidity Clear (Clear) 10/16/17 09:13 Urine pH 5.0 (5.0-7.0) 10/16/17 09:13 Ur Specific [place] 1.024 (1.003-1.030) 10/16/17 09:13 Urine Protein 100 mg/dl mg/dL (Negative) 10/16/17 09:13 Urine Glucose (UA) Neg mg/dL (Negative) 10/16/17 09:13 Urine Ketones Neg mg/dL (Negative) 10/16/17 09:13 Urine Blood Mod (Negative) 10/16/17 09:13 Urine Nitrite Neg (Negative) 10/16/17 09:13 Urine Bilirubin Neg (Negative) 10/16/17 09:13 Urine Urobilinogen < 2.0 mg/dL (<2.0) 10/16/17 09:13 Ur Leukocyte Esterase Sm (Negative) 10/16/17 09:13 Urine WBC (Auto) 46.0 /HPF (0.0-6.0) H 10/16/17 09:13 Urine RBC (Auto) 21.0 /HPF (0.0-6.0) 10/16/17 09:13 Urine Bacteria (Auto) 1+ /HPF (Negative) 10/16/17 09:13 Amorphous Crystals Few 10/16/17 09:13 Urine Mucus Few /HPF 10/16/17 09:13 Fluid Type Synovial 10/15/17 02:40 Fluid Color Yellow 10/15/17 02:40 Fluid Appearance Turbid 10/15/17 02:40 Fluid WBC 13936 /mm3 10/15/17 02:40 Fluid RBC 1000 /mm3 10/15/17 02:40 Fluid Seg Neutrophils 85.0 % 10/15/17 02:40 Fluid Lymphocytes 11.0 % 10/15/17 02:40 Fluid Reactive Lymphs 0 % 10/15/17 02:40 Fluid Monocytes 4.0 % 10/15/17 02:40 Fluid Eosinophils 0 % 10/15/17 02:40 Fluid Basophils 0 % 10/15/17 02:40 Fluid Comment Diff performed 10/15/17 02:40 Synovial Crystals Negative (NONE SEEN) 10/15/17 02:40 Vancomycin Trough 14.7 ug/mL (5.0-20.0) 10/18/17 20:16 <MADAY JOE - Last Filed: 10/19/17 15:15> Assessment and Plan Assessment and plan: I saw and evaluated the patient. I agree with the findings and the plan of care as documented in the PA's~note, with the following corrections and additions. BRENDON secondary to vaso motor nephropathy Patient ambulates with wheeled walker. Hospitalist Physical - Constitutional Vitals: Temp Pulse Resp BP Pulse Ox 99.0 F 98 H 18 147/79 93 10/19/17 08:34 10/19/17 08:34 10/19/17 08:34 10/19/17 08:34 10/19/17 08:34 Results - Labs CBC & Chem 7: 10/19/17 13:05 10/18/17 05:15 Labs: Laboratory Last Values WBC 16.5 K/mm3 (4.5-11.0) H 10/19/17 13:05 RBC 4.00 M/mm3 (3.65-5.03) 10/19/17 13:05 Hgb 11.3 gm/dl (11.8-15.2) L 10/19/17 13:05 Hct 34.2 % (35.5-45.6) L 10/19/17 13:05 MCV 85 fl (84-94) 10/19/17 13:05 MCH 28 pg (28-32) 10/19/17 13:05 MCHC 33 % (32-34) 10/19/17 13:05 RDW 14.3 % (13.2-15.2) 10/19/17 13:05 Plt Count 374 K/mm3 (140-440) 10/19/17 13:05 Lymph % (Auto) 10.2 % (13.4-35.0) L 10/19/17 13:05 [place] % (Auto) 16.0 % (0.0-7.3) H 10/19/17 13:05 Eos % (Auto) 1.5 % (0.0-4.3) 10/19/17 13:05 Baso % (Auto) 0.3 % (0.0-1.8) 10/19/17 13:05 Lymph # 1.7 K/mm3 (1.2-5.4) 10/19/17 13:05 [place] # 2.6 K/mm3 (0.0-0.8) H 10/19/17 13:05 Eos # 0.3 K/mm3 (0.0-0.4) 10/19/17 13:05 Baso # 0.0 K/mm3 (0.0-0.1) 10/19/17 13:05 Add Manual Diff Complete 10/18/17 05:15 Total Counted 100 10/18/17 05:15 Seg Neutrophils % 72.0 % (40.0-70.0) H 10/19/17 13:05 Seg Neuts % (Manual) 79.0 % (40.0-70.0) H 10/18/17 05:15 Band Neutrophils % 1.0 % 10/18/17 05:15 Lymphocytes % (Manual) 7.0 % (13.4-35.0) L 10/18/17 05:15 Reactive Lymphs % (Man) 0 % 10/18/17 05:15 Monocytes % (Manual) 12.0 % (0.0-7.3) H 10/18/17 05:15 Eosinophils % (Manual) 1.0 % (0.0-4.3) 10/18/17 05:15 Basophils % (Manual) 0 % (0.0-1.8) 10/18/17 05:15 Metamyelocytes % 0 % 10/18/17 05:15 Myelocytes % 0 % 10/18/17 05:15 Promyelocytes % 0 % 10/18/17 05:15 Blast Cells % 0 % 10/18/17 05:15 Nucleated RBC % Not Reportable 10/18/17 05:15 Seg Neutrophils # 11.9 K/mm3 (1.8-7.7) H 10/19/17 13:05 Seg Neutrophils # Man 14.3 K/mm3 (1.8-7.7) H 10/18/17 05:15 Band Neutrophils # 0.2 K/mm3 10/18/17 05:15 Lymphocytes # (Manual) 1.3 K/mm3 (1.2-5.4) 10/18/17 05:15 Abs React Lymphs (Man) 0.0 K/mm3 10/18/17 05:15 Monocytes # (Manual) 2.2 K/mm3 (0.0-0.8) H 10/18/17 05:15 Eosinophils # (Manual) 0.2 K/mm3 (0.0-0.4) 10/18/17 05:15 Basophils # (Manual) 0.0 K/mm3 (0.0-0.1) 10/18/17 05:15 Metamyelocytes # 0.0 K/mm3 10/18/17 05:15 Myelocytes # 0.0 K/mm3 10/18/17 05:15 Promyelocytes # 0.0 K/mm3 10/18/17 05:15 Blast Cells # 0.0 K/mm3 10/18/17 05:15 WBC Morphology Not Reportable 10/18/17 05:15 Hypersegmented Neuts Not Reportable 10/18/17 05:15 Hyposegmented Neuts Not Reportable 10/18/17 05:15 Hypogranular Neuts Not Reportable 10/18/17 05:15 Smudge Cells Not Reportable 10/18/17 05:15 Toxic Granulation Not Reportable 10/18/17 05:15 Toxic Vacuolation Not Reportable 10/18/17 05:15 Dohle Bodies Not Reportable 10/18/17 05:15 Pelger-Huet Anomaly Not Reportable 10/18/17 05:15 Radha Rods Not Reportable 10/18/17 05:15 Platelet Estimate Cons 10/18/17 05:15 Clumped Platelets Not Reportable 10/18/17 05:15 Plt Clumps, EDTA Not Reportable 10/18/17 05:15 Large Platelets Not Reportable 10/18/17 05:15 Giant Platelets Few 10/18/17 05:15 Platelet Satelliting Not Reportable 10/18/17 05:15 Plt Morphology Comment Not Reportable 10/18/17 05:15 RBC Morphology Not Reportable 10/18/17 05:15 Dimorphic RBCs Not Reportable 10/18/17 05:15 Polychromasia Not Reportable 10/18/17 05:15 Hypochromasia Not Reportable 10/18/17 05:15 Poikilocytosis Not Reportable 10/18/17 05:15 Anisocytosis 1+ 10/18/17 05:15 Microcytosis Not Reportable 10/18/17 05:15 Macrocytosis Not Reportable 10/18/17 05:15 Spherocytes Not Reportable 10/18/17 05:15 Pappenheimer Bodies Not Reportable 10/18/17 05:15 Sickle Cells Not Reportable 10/18/17 05:15 Target Cells Not Reportable 10/18/17 05:15 Tear Drop Cells Not Reportable 10/18/17 05:15 Ovalocytes Not Reportable 10/18/17 05:15 Helmet Cells Not Reportable 10/18/17 05:15 [place] Bodies Not Reportable 10/18/17 05:15 [place] Rings Not Reportable 10/18/17 05:15 Bath Cells Not Reportable 10/18/17 05:15 Bite Cells Not Reportable 10/18/17 05:15 Crenated Cell Not Reportable 10/18/17 05:15 Elliptocytes Not Reportable 10/18/17 05:15 Acanthocytes (Spur) Not Reportable 10/18/17 05:15 Rouleaux Not Reportable 10/18/17 05:15 Hemoglobin C Crystals Not Reportable 10/18/17 05:15 Schistocytes Not Reportable 10/18/17 05:15 Malaria parasites Not Reportable 10/18/17 05:15 ESR 29 mm/Hr (0-20) 10/15/17 05:45 Raf Bodies Not Reportable 10/18/17 05:15 Hem Pathologist Commnt No 10/18/17 05:15 Sodium 137 mmol/L (137-145) 10/18/17 05:15 Potassium 3.8 mmol/L (3.6-5.0) 10/18/17 05:15 Chloride 97.7 mmol/L (98-107) L 10/18/17 05:15 Carbon Dioxide 25 mmol/L (22-30) 10/18/17 05:15 Anion Gap 18 mmol/L 10/18/17 05:15 BUN 10 mg/dL (9-20) 10/18/17 05:15 Creatinine 1.4 mg/dL (0.8-1.5) 10/18/17 05:15 Estimated GFR > 60 ml/min 10/18/17 05:15 BUN/Creatinine Ratio 7 % 10/18/17 05:15 Glucose 120 mg/dL (75-100) H 10/18/17 05:15 Uric Acid 4.5 mg/dL (3.5-7.6) 10/19/17 13:05 Calcium 8.5 mg/dL (8.4-10.2) 10/18/17 05:15 Total Bilirubin 0.30 mg/dL (0.1-1.2) 10/16/17 05:15 AST 24 units/L (5-40) 10/16/17 05:15 ALT 11 units/L (7-56) 10/16/17 05:15 Alkaline Phosphatase 79 units/L (35-129) 10/16/17 05:15 C-Reactive Protein 41.00 mg/dL (0.00-1.30) H 10/19/17 13:05 Total Protein 7.3 g/dL (6.3-8.2) 10/16/17 05:15 Albumin 3.1 g/dL (3.9-5) L 10/16/17 05:15 Albumin/Globulin Ratio 0.7 % 10/16/17 05:15 Urine Color Yellow (Yellow) 10/16/17 09:13 Urine Turbidity Clear (Clear) 10/16/17 09:13 Urine pH 5.0 (5.0-7.0) 10/16/17 09:13 Ur Specific [place] 1.024 (1.003-1.030) 10/16/17 09:13 Urine Protein 100 mg/dl mg/dL (Negative) 10/16/17 09:13 Urine Glucose (UA) Neg mg/dL (Negative) 10/16/17 09:13 Urine Ketones Neg mg/dL (Negative) 10/16/17 09:13 Urine Blood Mod (Negative) 10/16/17 09:13 Urine Nitrite Neg (Negative) 10/16/17 09:13 Urine Bilirubin Neg (Negative) 10/16/17 09:13 Urine Urobilinogen < 2.0 mg/dL (<2.0) 10/16/17 09:13 Ur Leukocyte Esterase Sm (Negative) 10/16/17 09:13 Urine WBC (Auto) 46.0 /HPF (0.0-6.0) H 10/16/17 09:13 Urine RBC (Auto) 21.0 /HPF (0.0-6.0) 10/16/17 09:13 Urine Bacteria (Auto) 1+ /HPF (Negative) 10/16/17 09:13 Amorphous Crystals Few 10/16/17 09:13 Urine Mucus Few /HPF 10/16/17 09:13 Fluid Type Synovial 10/15/17 02:40 Fluid Color Yellow 10/15/17 02:40 Fluid Appearance Turbid 10/15/17 02:40 Fluid WBC 13598 /mm3 10/15/17 02:40 Fluid RBC 1000 /mm3 10/15/17 02:40 Fluid Seg Neutrophils 85.0 % 10/15/17 02:40 Fluid Lymphocytes 11.0 % 10/15/17 02:40 Fluid Reactive Lymphs 0 % 10/15/17 02:40 Fluid Monocytes 4.0 % 10/15/17 02:40 Fluid Eosinophils 0 % 10/15/17 02:40 Fluid Basophils 0 % 10/15/17 02:40 Fluid Comment Diff performed 10/15/17 02:40 Synovial Crystals Negative (NONE SEEN) 10/15/17 02:40 Vancomycin Trough 14.7 ug/mL (5.0-20.0) 10/18/17 20:16 Rheumatoid Factor 22 IU/ml (0-13) H 10/19/17 13:05
[2017-10-19] MEDS: LOPRESSOR PO SCH ×2 (10:08→21:30)
[2017-10-19] MEDS: DITROPAN PO SCH ×2 (10:08→21:30)
[2017-10-19] MEDS: HALFPRIN EC PO SCH (10:08)
[2017-10-19] MEDS: VANCOMYCIN 1,750 MG in NACL 0.9% 500 ML 500 ML IV SCH ×2 (10:09→21:29)
[2017-10-19] MEDS: DESCOVY PO SCH (10:11)
[2017-10-19] MEDS: PREZISTA PO SCH (10:12)
[2017-10-19] MEDS: NORVIR PO SCH (10:12)
[2017-10-19 13:41] LABS: Basophils % (Auto) 0.3 % (0.0-1.8); Eosinophils # (Auto) 0.3 K/mm3 (0.0-0.4); Eosinophils % (Auto) 1.5 % (0.0-4.3); Hematocrit 34.2 % (35.5-45.6); Hemoglobin 11.3 gm/dl (11.8-15.2); Lymphocytes # (Auto) 1.7 K/mm3 (1.2-5.4); Lymphocytes % (Auto) 10.2 % (13.4-35.0); Mean Corpuscular HGB Conc 33 % (32-34); Mean Corpuscular Hemoglobin 28 pg (28-32); Mean Corpuscular Volume 85 fl (84-94); Monocytes # (Auto) 2.6 K/mm3 (0.0-0.8); Platelet Count 374 K/mm3 (140-440); Red Cell Distribution Width 14.3 % (13.2-15.2)
--- NOTE | 2017-10-19 13:59 | Consultation ---
History of Present Illness - [facility] Consult date: 10/19/17 Consult reason: joint pain History of present illness: 52 y/o male with c/o bilateral knee pain and swelling for past couple of weeks, denies hx of injury... 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) Social history: other (he denies tobacco, alcohol or illicit drug use) Family history: other (reviewed and noncontributory) Medications and Allergies Allergies Allergy/AdvReac Type Severity Reaction Status Date / Time Penicillins Allergy Rash Verified 09/12/13 22:45 Home Medications Medication Instructions Recorded Confirmed Last Taken Type Naproxen [Naprosyn] 500 mg PO BID #40 tablet 10/13/17 10/15/17 1 Day Ago Rx ~10/14/17 Oxybutynin [Ditropan] 5 mg PO BID #20 tablet 10/13/17 10/15/17 1 Day Ago Rx ~10/14/17 traMADol [Ultram 50 MG tab] 50 mg PO Q6HR PRN #20 tablet 10/13/17 10/15/17 1 Day Ago Rx ~10/14/17 Aspirin [Aspir-Low] 81 mg PO DAILY 10/15/17 10/15/17 1 Day Ago History ~10/14/17 Descovy 200-25 mg Tablet 200 mg PO DAILY 10/15/17 10/15/17 10/14/17 History Hydrochlorothiazide [HCTZ] 25 mg PO QDAY 10/15/17 10/15/17 1 Day Ago History ~10/14/17 Lisinopril [Zestril] 10 mg PO DAILY 10/15/17 10/15/17 1 Day Ago History ~10/14/17 Norvir 100 mg PO DAILY 10/15/17 10/15/17 10/14/17 History Prezista 800 mg PO DAILY 10/15/17 10/15/17 10/14/17 History Active Meds: Active Medications Acetaminophen (Tylenol) 650 mg PO Q6H PRN PRN Reason: Pain, Mild (1-3) Last Admin: 10/18/17 18:01 Dose: 650 mg Aspirin (Halfprin Ec) 81 mg PO DAILY [facility] Last Admin: 10/19/17 10:08 Dose: 81 mg Darunavir (Prezista) 800 mg PO QDAY [facility] Last Admin: 10/19/17 10:12 Dose: Not Given Hydralazine HCl (Apresoline) 10 mg IV Q4HR PRN PRN Reason: Blood Pressure Ceftriaxone Sodium 2 gm/ (Sodium Chloride) 20 mls @ 2 mls/min IV Q24H [facility] Last Admin: 10/19/17 05:55 Dose: 2 mls/min Vancomycin HCl 1,750 mg/ (Sodium Chloride) 517.5 mls @ 333.333 mls/hr IV Q12HR [facility] Last Admin: 10/19/17 10:09 Dose: 333.333 mls/hr Metoprolol Tartrate (Lopressor) 25 mg PO BID [facility] Last Admin: 10/19/17 10:08 Dose: 25 mg Miscellaneous Medication (Descovy 200-25 Mg Tablet) 200 mg PO DAILY [facility] Last Admin: 10/19/17 10:11 Dose: Not Given Morphine Sulfate (Morphine) 2 mg IV Q4H PRN PRN Reason: Pain, Moderate (4-6) Last Admin: 10/18/17 03:19 Dose: 2 mg Oxybutynin Chloride (Ditropan) 5 mg PO BID [facility] Last Admin: 10/19/17 10:08 Dose: 5 mg Oxycodone/Acetaminophen (Percocet 5/325) 2 tab PO Q4H PRN PRN Reason: Pain, Moderate (4-6) Last Admin: 10/19/17 11:02 Dose: 2 tab Ritonavir (Norvir) 100 mg PO DAILY [facility] Last Admin: 10/19/17 10:12 Dose: Not Given Vancomycin HCl (Vancomycin Pharmacy To Dose) 1 each IV PKCONSULT [facility]; Protocol Assessment and Plan bilateral knee pain and swelling suspect gout vs inflammatory etiology will order blood w/u for gout, connective tissue disorders
--- NOTE | 2017-10-19 15:31 | Progress Note ---
Assessment and Plan Assessment: 1) SIRS: still fever and leukocytosis. Etiology Edilberto knee arthritis +/- UTI +/- conjunctivitis +/- 2) Edilberto L>R knee arthritis: unclear etiology ? septic vs. inflammatory ( associated with Cronh's or UC) vs. reactive (post-diarrhea) vs. pseudogout -Synovial fluid showed 87,750 white blood cells and 85% segs, no crystals. Gram stain many WBC no organisms. -CRP=30 3) UTI: urine cx 10-100K mixed bacteria 4) Acute Diarrhea: started 2 weeks ago, no recent intake of antibiotics 5) HIV infection: since 2000, currently on Descovy, Norvir and Prezista, sees HIV clinic [facility] in [place], [place]. Last viral load was undetectable and CD4 573. 6) Edilberto conjunctivitis Plan: -Rheum consult -consider IV steroids -F/u HLA-B27, KELLIE, ANCA -F/u synovial fluid cultures -continue ceftriaxone and vancomycin - D4 -monitor fever -continue descovy, prezista, norvir Discussed with Dr Casiano and patient HIV provider Thank you for your consultation, will follow up with you. Padmini Curry MD Infectious Diseases Specialist [facility] ([facility] M [phone] O [phone] Subjective Date of service: 10/19/17 Principal diagnosis: SIRS Interval history: Still C/o edilberto knee pain and swelling and sweats tmax 100.1 Microbiology: Blood cultures: 10/15 ngtd Synovial cultures: many PMNs no organisms. Urien cx: 10-100K mixed Current Antimicrobials: Ceftriaxone 10/16 Vancomycin 10/16 Previous Antimicrobials: Objective - Exam Narrative Exam: General appearance: Alert in NAD, conversant Eyes: anicteric sclerae, + bilaterally injected erythematous conjunctiva; no lid -lag; PERRLA HENT: Atraumatic; oropharynx clear with moist mucous membranes and no mucosal ulcerations/no oral thrush; normal hard and soft palate. Normal external ears. Neck: Trachea midline; supple, no thyromegaly or lymphadenopathy Lungs: CTA, with normal respiratory effort and no intercostal retractions CV: RRR, no murmurs Abdomen: Soft, non-tender; no masses or hepatosplenomegaly Extremities: Left knee with marked swelling, erythema, heat, tenderness. Right knee with more edema and tenderness Skin: Normal temperature, turgor and texture; no rash, ulcers or subcutaneous nodules Psych: Appropriate affect, alert and oriented to person, place and time. Neuro: alert and oriented x 3. Moving all extermities Lines: No CVL / PICC - Constitutional Vitals: Vital Signs Temp Pulse Resp BP Pulse Ox 99.0 F 98 H 18 147/79 93 10/19/17 08:34 10/19/17 08:34 10/19/17 08:34 10/19/17 08:34 10/19/17 08:34 Temperature -Last 24 Hours Temperature 99.0 F Temperature 98.9 F Temperature 98.5 F Temperature 99.5 F - Labs CBC & Chem 7: 10/19/17 13:05 10/18/17 05:15 Labs: Abnormal lab results 10/19/17 10/19/17 10/19/17 Range/Units 13:05 13:05 13:05 WBC 16.5 H (4.5-11.0) K/mm3 Hgb 11.3 L (11.8-15.2) gm/dl Hct 34.2 L (35.5-45.6) % Lymph % (Auto) 10.2 L (13.4-35.0) % [place] % (Auto) 16.0 H (0.0-7.3) % [place] # 2.6 H (0.0-0.8) K/mm3 Seg Neutrophils % 72.0 H (40.0-70.0) % Seg Neutrophils # 11.9 H (1.8-7.7) K/mm3 C-Reactive Protein 41.00 H (0.00-1.30) mg/dL Rheumatoid Factor 22 H (0-13) IU/ml
[2017-10-19] MEDS: MORPHINE IV PRN (20:25)
[2017-10-20] MEDS: cefTRIAXone 2 GM in NACL 0.9% 20 ML IV SCH (06:20)
[2017-10-20] MEDS: PERCOCET 5/325 PO PRN ×3 (06:25→21:22)
--- NOTE | 2017-10-20 10:19 | Progress Note ---
<SHAN PEREZ - Last Filed: 10/20/17 14:13> Assessment and Plan Assessment and plan: Bilateral knee septic arthritis v/s Inflammatory arthritis Patient has responded well to IV steroids, will continue s/p joint aspiration - Gram stain showed many WBC no organisms, continue IV antibiotics with vanc and rocephin due to allergy to penicillins Chlamydia/GC test negative, ID following, rec KELLIE, C3, C4 and HLA-B27 to assess for connective tissue dx ortho following Sepsis sec to the septic arthritis Improving, low-grade fever overnight, cont IV antibiotics, Blood cultures neg so far ID following BRENDON resolved H/o HIV/AIDS cont HAART therapy HTN, uncontrolled Continue antihypertensives Bilateral conjuctivitis, viral resolving Hx of diarrhea resolved DVT prophylaxis SCDs History Interval history: Patient seen and examined. The patient feels much better today, he is able to ambulate and go to the restroom. Labs, and nursing notes reviewed. Hospitalist Physical - Physical exam Narrative exam: General appearance: Present: no acute distress, well-nourished - EENT Eyes: Present: PERRL, EOM intact ENT: hearing intact, clear oral mucosa - Neck Neck: Present: supple, normal ROM - Respiratory Respiratory effort: normal Respiratory: bilateral: CTA - Cardiovascular Rhythm: regular Heart Sounds: Present: S1 & S2 - Extremities Extremities: no ischemia, bilateral knee edema - Abdominal General gastrointestinal: soft, non-tender, non-distended - Integumentary Integumentary: Present: clear, warm, dry - Psychiatric Psychiatric: appropriate mood/affect, intact judgment & insight, cooperative - Neurologic Neurologic: CNII-XII intact, moves all extremities - Constitutional Vitals: Temp Pulse Resp BP Pulse Ox 97.7 F 80 20 135/79 91 10/20/17 07:16 10/20/17 07:16 10/20/17 07:16 10/20/17 07:16 10/20/17 07:16 Results - Labs CBC & Chem 7: 10/19/17 13:05 10/18/17 05:15 Labs: Laboratory Last Values WBC 16.5 K/mm3 (4.5-11.0) H 10/19/17 13:05 RBC 4.00 M/mm3 (3.65-5.03) 10/19/17 13:05 Hgb 11.3 gm/dl (11.8-15.2) L 10/19/17 13:05 Hct 34.2 % (35.5-45.6) L 10/19/17 13:05 MCV 85 fl (84-94) 10/19/17 13:05 MCH 28 pg (28-32) 10/19/17 13:05 MCHC 33 % (32-34) 10/19/17 13:05 RDW 14.3 % (13.2-15.2) 10/19/17 13:05 Plt Count 374 K/mm3 (140-440) 10/19/17 13:05 Lymph % (Auto) 10.2 % (13.4-35.0) L 10/19/17 13:05 [place] % (Auto) 16.0 % (0.0-7.3) H 10/19/17 13:05 Eos % (Auto) 1.5 % (0.0-4.3) 10/19/17 13:05 Baso % (Auto) 0.3 % (0.0-1.8) 10/19/17 13:05 Lymph # 1.7 K/mm3 (1.2-5.4) 10/19/17 13:05 [place] # 2.6 K/mm3 (0.0-0.8) H 10/19/17 13:05 Eos # 0.3 K/mm3 (0.0-0.4) 10/19/17 13:05 Baso # 0.0 K/mm3 (0.0-0.1) 10/19/17 13:05 Add Manual Diff Complete 10/18/17 05:15 Total Counted 100 10/18/17 05:15 Seg Neutrophils % 72.0 % (40.0-70.0) H 10/19/17 13:05 Seg Neuts % (Manual) 79.0 % (40.0-70.0) H 10/18/17 05:15 Band Neutrophils % 1.0 % 10/18/17 05:15 Lymphocytes % (Manual) 7.0 % (13.4-35.0) L 10/18/17 05:15 Reactive Lymphs % (Man) 0 % 10/18/17 05:15 Monocytes % (Manual) 12.0 % (0.0-7.3) H 10/18/17 05:15 Eosinophils % (Manual) 1.0 % (0.0-4.3) 10/18/17 05:15 Basophils % (Manual) 0 % (0.0-1.8) 10/18/17 05:15 Metamyelocytes % 0 % 10/18/17 05:15 Myelocytes % 0 % 10/18/17 05:15 Promyelocytes % 0 % 10/18/17 05:15 Blast Cells % 0 % 10/18/17 05:15 Nucleated RBC % Not Reportable 10/18/17 05:15 Seg Neutrophils # 11.9 K/mm3 (1.8-7.7) H 10/19/17 13:05 Seg Neutrophils # Man 14.3 K/mm3 (1.8-7.7) H 10/18/17 05:15 Band Neutrophils # 0.2 K/mm3 10/18/17 05:15 Lymphocytes # (Manual) 1.3 K/mm3 (1.2-5.4) 10/18/17 05:15 Abs React Lymphs (Man) 0.0 K/mm3 10/18/17 05:15 Monocytes # (Manual) 2.2 K/mm3 (0.0-0.8) H 10/18/17 05:15 Eosinophils # (Manual) 0.2 K/mm3 (0.0-0.4) 10/18/17 05:15 Basophils # (Manual) 0.0 K/mm3 (0.0-0.1) 10/18/17 05:15 Metamyelocytes # 0.0 K/mm3 10/18/17 05:15 Myelocytes # 0.0 K/mm3 10/18/17 05:15 Promyelocytes # 0.0 K/mm3 10/18/17 05:15 Blast Cells # 0.0 K/mm3 10/18/17 05:15 WBC Morphology Not Reportable 10/18/17 05:15 Hypersegmented Neuts Not Reportable 10/18/17 05:15 Hyposegmented Neuts Not Reportable 10/18/17 05:15 Hypogranular Neuts Not Reportable 10/18/17 05:15 Smudge Cells Not Reportable 10/18/17 05:15 Toxic Granulation Not Reportable 10/18/17 05:15 Toxic Vacuolation Not Reportable 10/18/17 05:15 Dohle Bodies Not Reportable 10/18/17 05:15 Pelger-Huet Anomaly Not Reportable 10/18/17 05:15 Radha Rods Not Reportable 10/18/17 05:15 Platelet Estimate Cons 10/18/17 05:15 Clumped Platelets Not Reportable 10/18/17 05:15 Plt Clumps, EDTA Not Reportable 10/18/17 05:15 Large Platelets Not Reportable 10/18/17 05:15 Giant Platelets Few 10/18/17 05:15 Platelet Satelliting Not Reportable 10/18/17 05:15 Plt Morphology Comment Not Reportable 10/18/17 05:15 RBC Morphology Not Reportable 10/18/17 05:15 Dimorphic RBCs Not Reportable 10/18/17 05:15 Polychromasia Not Reportable 10/18/17 05:15 Hypochromasia Not Reportable 10/18/17 05:15 Poikilocytosis Not Reportable 10/18/17 05:15 Anisocytosis 1+ 10/18/17 05:15 Microcytosis Not Reportable 10/18/17 05:15 Macrocytosis Not Reportable 10/18/17 05:15 Spherocytes Not Reportable 10/18/17 05:15 Pappenheimer Bodies Not Reportable 10/18/17 05:15 Sickle Cells Not Reportable 10/18/17 05:15 Target Cells Not Reportable 10/18/17 05:15 Tear Drop Cells Not Reportable 10/18/17 05:15 Ovalocytes Not Reportable 10/18/17 05:15 Helmet Cells Not Reportable 10/18/17 05:15 Lawson-Sabana Eneas Bodies Not Reportable 10/18/17 05:15 [place] Rings Not Reportable 10/18/17 05:15 [place] Cells Not Reportable 10/18/17 05:15 Bite Cells Not Reportable 10/18/17 05:15 Crenated Cell Not Reportable 10/18/17 05:15 Elliptocytes Not Reportable 10/18/17 05:15 Acanthocytes (Spur) Not Reportable 10/18/17 05:15 Rouleaux Not Reportable 10/18/17 05:15 Hemoglobin C Crystals Not Reportable 10/18/17 05:15 Schistocytes Not Reportable 10/18/17 05:15 Malaria parasites Not Reportable 10/18/17 05:15 ESR 29 mm/Hr (0-20) 10/15/17 05:45 Raf Bodies Not Reportable 10/18/17 05:15 Hem Pathologist Commnt No 10/18/17 05:15 Sodium 137 mmol/L (137-145) 10/18/17 05:15 Potassium 3.8 mmol/L (3.6-5.0) 10/18/17 05:15 Chloride 97.7 mmol/L (98-107) L 10/18/17 05:15 Carbon Dioxide 25 mmol/L (22-30) 10/18/17 05:15 Anion Gap 18 mmol/L 10/18/17 05:15 BUN 10 mg/dL (9-20) 10/18/17 05:15 Creatinine 1.4 mg/dL (0.8-1.5) 10/18/17 05:15 Estimated GFR > 60 ml/min 10/18/17 05:15 BUN/Creatinine Ratio 7 % 10/18/17 05:15 Glucose 120 mg/dL (75-100) H 10/18/17 05:15 Uric Acid 4.8 mg/dL (3.5-7.6) 10/19/17 13:05 Calcium 8.5 mg/dL (8.4-10.2) 10/18/17 05:15 Total Bilirubin 0.30 mg/dL (0.1-1.2) 10/16/17 05:15 AST 24 units/L (5-40) 10/16/17 05:15 ALT 11 units/L (7-56) 10/16/17 05:15 Alkaline Phosphatase 79 units/L (35-129) 10/16/17 05:15 C-Reactive Protein 41.00 mg/dL (0.00-1.30) H 10/19/17 13:05 Total Protein 7.3 g/dL (6.3-8.2) 10/16/17 05:15 Albumin 3.1 g/dL (3.9-5) L 10/16/17 05:15 Albumin/Globulin Ratio 0.7 % 10/16/17 05:15 Urine Color Yellow (Yellow) 10/16/17 09:13 Urine Turbidity Clear (Clear) 10/16/17 09:13 Urine pH 5.0 (5.0-7.0) 10/16/17 09:13 Ur Specific [place] 1.024 (1.003-1.030) 10/16/17 09:13 Urine Protein 100 mg/dl mg/dL (Negative) 10/16/17 09:13 Urine Glucose (UA) Neg mg/dL (Negative) 10/16/17 09:13 Urine Ketones Neg mg/dL (Negative) 10/16/17 09:13 Urine Blood Mod (Negative) 10/16/17 09:13 Urine Nitrite Neg (Negative) 10/16/17 09:13 Urine Bilirubin Neg (Negative) 10/16/17 09:13 Urine Urobilinogen < 2.0 mg/dL (<2.0) 10/16/17 09:13 Ur Leukocyte Esterase Sm (Negative) 10/16/17 09:13 Urine WBC (Auto) 46.0 /HPF (0.0-6.0) H 10/16/17 09:13 Urine RBC (Auto) 21.0 /HPF (0.0-6.0) 10/16/17 09:13 Urine Bacteria (Auto) 1+ /HPF (Negative) 10/16/17 09:13 Amorphous Crystals Few 10/16/17 09:13 Urine Mucus Few /HPF 10/16/17 09:13 Fluid Type Synovial 10/15/17 02:40 Fluid Color Yellow 10/15/17 02:40 Fluid Appearance Turbid 10/15/17 02:40 Fluid WBC 60412 /mm3 10/15/17 02:40 Fluid RBC 1000 /mm3 10/15/17 02:40 Fluid Seg Neutrophils 85.0 % 10/15/17 02:40 Fluid Lymphocytes 11.0 % 10/15/17 02:40 Fluid Reactive Lymphs 0 % 10/15/17 02:40 Fluid Monocytes 4.0 % 10/15/17 02:40 Fluid Eosinophils 0 % 10/15/17 02:40 Fluid Basophils 0 % 10/15/17 02:40 Fluid Comment Diff performed 10/15/17 02:40 Synovial Crystals Negative (NONE SEEN) 10/15/17 02:40 Vancomycin Trough 14.7 ug/mL (5.0-20.0) 10/18/17 20:16 Rheumatoid Factor 22 IU/ml (0-13) H 10/19/17 13:05 C.trachomatis DNA (SDA) Not detected (Not Detected) 10/16/17 09:13 N.gonorrhoeae DNA (SDA) Not detected (Not Detected) 10/16/17 09:13 <PAVAN DELEON - Last Filed: 10/20/17 17:23> Assessment and Plan Assessment and plan: I saw and evaluated the patient. I agree with the findings and the plan of care as documented in the Nurse Practitioner's~note, with the following corrections and additions. Patient with bilateral knee arthritis. He feels better. Continue trial of steroids. Hospitalist Physical - Constitutional Vitals: Temp Pulse Resp BP Pulse Ox 97.6 F 85 20 145/82 89 10/20/17 15:28 10/20/17 15:28 10/20/17 15:28 10/20/17 15:28 10/20/17 15:28 Results - Labs CBC & Chem 7: 10/19/17 13:05 10/18/17 05:15 Labs: Laboratory Last Values WBC 16.5 K/mm3 (4.5-11.0) H 10/19/17 13:05 RBC 4.00 M/mm3 (3.65-5.03) 10/19/17 13:05 Hgb 11.3 gm/dl (11.8-15.2) L 10/19/17 13:05 Hct 34.2 % (35.5-45.6) L 10/19/17 13:05 MCV 85 fl (84-94) 10/19/17 13:05 MCH 28 pg (28-32) 10/19/17 13:05 MCHC 33 % (32-34) 10/19/17 13:05 RDW 14.3 % (13.2-15.2) 10/19/17 13:05 Plt Count 374 K/mm3 (140-440) 10/19/17 13:05 Lymph % (Auto) 10.2 % (13.4-35.0) L 10/19/17 13:05 [place] % (Auto) 16.0 % (0.0-7.3) H 10/19/17 13:05 Eos % (Auto) 1.5 % (0.0-4.3) 10/19/17 13:05 Baso % (Auto) 0.3 % (0.0-1.8) 10/19/17 13:05 Lymph # 1.7 K/mm3 (1.2-5.4) 10/19/17 13:05 [place] # 2.6 K/mm3 (0.0-0.8) H 10/19/17 13:05 Eos # 0.3 K/mm3 (0.0-0.4) 10/19/17 13:05 Baso # 0.0 K/mm3 (0.0-0.1) 10/19/17 13:05 Add Manual Diff Complete 10/18/17 05:15 Total Counted 100 10/18/17 05:15 Seg Neutrophils % 72.0 % (40.0-70.0) H 10/19/17 13:05 Seg Neuts % (Manual) 79.0 % (40.0-70.0) H 10/18/17 05:15 Band Neutrophils % 1.0 % 10/18/17 05:15 Lymphocytes % (Manual) 7.0 % (13.4-35.0) L 10/18/17 05:15 Reactive Lymphs % (Man) 0 % 10/18/17 05:15 Monocytes % (Manual) 12.0 % (0.0-7.3) H 10/18/17 05:15 Eosinophils % (Manual) 1.0 % (0.0-4.3) 10/18/17 05:15 Basophils % (Manual) 0 % (0.0-1.8) 10/18/17 05:15 Metamyelocytes % 0 % 10/18/17 05:15 Myelocytes % 0 % 10/18/17 05:15 Promyelocytes % 0 % 10/18/17 05:15 Blast Cells % 0 % 10/18/17 05:15 Nucleated RBC % Not Reportable 10/18/17 05:15 Seg Neutrophils # 11.9 K/mm3 (1.8-7.7) H 10/19/17 13:05 Seg Neutrophils # Man 14.3 K/mm3 (1.8-7.7) H 10/18/17 05:15 Band Neutrophils # 0.2 K/mm3 10/18/17 05:15 Lymphocytes # (Manual) 1.3 K/mm3 (1.2-5.4) 10/18/17 05:15 Abs React Lymphs (Man) 0.0 K/mm3 10/18/17 05:15 Monocytes # (Manual) 2.2 K/mm3 (0.0-0.8) H 10/18/17 05:15 Eosinophils # (Manual) 0.2 K/mm3 (0.0-0.4) 10/18/17 05:15 Basophils # (Manual) 0.0 K/mm3 (0.0-0.1) 10/18/17 05:15 Metamyelocytes # 0.0 K/mm3 10/18/17 05:15 Myelocytes # 0.0 K/mm3 10/18/17 05:15 Promyelocytes # 0.0 K/mm3 10/18/17 05:15 Blast Cells # 0.0 K/mm3 10/18/17 05:15 WBC Morphology Not Reportable 10/18/17 05:15 Hypersegmented Neuts Not Reportable 10/18/17 05:15 Hyposegmented Neuts Not Reportable 10/18/17 05:15 Hypogranular Neuts Not Reportable 10/18/17 05:15 Smudge Cells Not Reportable 10/18/17 05:15 Toxic Granulation Not Reportable 10/18/17 05:15 Toxic Vacuolation Not Reportable 10/18/17 05:15 Dohle Bodies Not Reportable 10/18/17 05:15 Pelger-Huet Anomaly Not Reportable 10/18/17 05:15 Radha Rods Not Reportable 10/18/17 05:15 Platelet Estimate Cons 10/18/17 05:15 Clumped Platelets Not Reportable 10/18/17 05:15 Plt Clumps, EDTA Not Reportable 10/18/17 05:15 Large Platelets Not Reportable 10/18/17 05:15 Giant Platelets Few 10/18/17 05:15 Platelet Satelliting Not Reportable 10/18/17 05:15 Plt Morphology Comment Not Reportable 10/18/17 05:15 RBC Morphology Not Reportable 10/18/17 05:15 Dimorphic RBCs Not Reportable 10/18/17 05:15 Polychromasia Not Reportable 10/18/17 05:15 Hypochromasia Not Reportable 10/18/17 05:15 Poikilocytosis Not Reportable 10/18/17 05:15 Anisocytosis 1+ 10/18/17 05:15 Microcytosis Not Reportable 10/18/17 05:15 Macrocytosis Not Reportable 10/18/17 05:15 Spherocytes Not Reportable 10/18/17 05:15 Pappenheimer Bodies Not Reportable 10/18/17 05:15 Sickle Cells Not Reportable 10/18/17 05:15 Target Cells Not Reportable 10/18/17 05:15 Tear Drop Cells Not Reportable 10/18/17 05:15 Ovalocytes Not Reportable 10/18/17 05:15 Helmet Cells Not Reportable 10/18/17 05:15 Lawson-S[place] Eneas Bodies Not Reportable 10/18/17 05:15 [place] Rings Not Reportable 10/18/17 05:15 [place] Cells Not Reportable 10/18/17 05:15 Bite Cells Not Reportable 10/18/17 05:15 Crenated Cell Not Reportable 10/18/17 05:15 Elliptocytes Not Reportable 10/18/17 05:15 Acanthocytes (Spur) Not Reportable 10/18/17 05:15 Rouleaux Not Reportable 10/18/17 05:15 Hemoglobin C Crystals Not Reportable 10/18/17 05:15 Schistocytes Not Reportable 10/18/17 05:15 Malaria parasites Not Reportable 10/18/17 05:15 ESR 29 mm/Hr (0-20) 10/15/17 05:45 Raf Bodies Not Reportable 10/18/17 05:15 Hem Pathologist Commnt No 10/18/17 05:15 Sodium 137 mmol/L (137-145) 10/18/17 05:15 Potassium 3.8 mmol/L (3.6-5.0) 10/18/17 05:15 Chloride 97.7 mmol/L (98-107) L 10/18/17 05:15 Carbon Dioxide 25 mmol/L (22-30) 10/18/17 05:15 Anion Gap 18 mmol/L 10/18/17 05:15 BUN 10 mg/dL (9-20) 10/18/17 05:15 Creatinine 1.4 mg/dL (0.8-1.5) 10/18/17 05:15 Estimated GFR > 60 ml/min 10/18/17 05:15 BUN/Creatinine Ratio 7 % 10/18/17 05:15 Glucose 120 mg/dL (75-100) H 10/18/17 05:15 Uric Acid 4.8 mg/dL (3.5-7.6) 10/19/17 13:05 Calcium 8.5 mg/dL (8.4-10.2) 10/18/17 05:15 Total Bilirubin 0.30 mg/dL (0.1-1.2) 10/16/17 05:15 AST 24 units/L (5-40) 10/16/17 05:15 ALT 11 units/L (7-56) 10/16/17 05:15 Alkaline Phosphatase 79 units/L (35-129) 10/16/17 05:15 C-Reactive Protein 41.00 mg/dL (0.00-1.30) H 10/19/17 13:05 Total Protein 7.3 g/dL (6.3-8.2) 10/16/17 05:15 Albumin 3.1 g/dL (3.9-5) L 10/16/17 05:15 Albumin/Globulin Ratio 0.7 % 10/16/17 05:15 Urine Color Yellow (Yellow) 10/16/17 09:13 Urine Turbidity Clear (Clear) 10/16/17 09:13 Urine pH 5.0 (5.0-7.0) 10/16/17 09:13 Ur Specific [place] 1.024 (1.003-1.030) 10/16/17 09:13 Urine Protein 100 mg/dl mg/dL (Negative) 10/16/17 09:13 Urine Glucose (UA) Neg mg/dL (Negative) 10/16/17 09:13 Urine Ketones Neg mg/dL (Negative) 10/16/17 09:13 Urine Blood Mod (Negative) 10/16/17 09:13 Urine Nitrite Neg (Negative) 10/16/17 09:13 Urine Bilirubin Neg (Negative) 10/16/17 09:13 Urine Urobilinogen < 2.0 mg/dL (<2.0) 10/16/17 09:13 Ur Leukocyte Esterase Sm (Negative) 10/16/17 09:13 Urine WBC (Auto) 46.0 /HPF (0.0-6.0) H 10/16/17 09:13 Urine RBC (Auto) 21.0 /HPF (0.0-6.0) 10/16/17 09:13 Urine Bacteria (Auto) 1+ /HPF (Negative) 10/16/17 09:13 Amorphous Crystals Few 10/16/17 09:13 Urine Mucus Few /HPF 10/16/17 09:13 Fluid Type Synovial 10/15/17 02:40 Fluid Color Yellow 10/15/17 02:40 Fluid Appearance Turbid 10/15/17 02:40 Fluid WBC 11462 /mm3 10/15/17 02:40 Fluid RBC 1000 /mm3 10/15/17 02:40 Fluid Seg Neutrophils 85.0 % 10/15/17 02:40 Fluid Lymphocytes 11.0 % 10/15/17 02:40 Fluid Reactive Lymphs 0 % 10/15/17 02:40 Fluid Monocytes 4.0 % 10/15/17 02:40 Fluid Eosinophils 0 % 10/15/17 02:40 Fluid Basophils 0 % 10/15/17 02:40 Fluid Comment Diff performed 10/15/17 02:40 Synovial Crystals Negative (NONE SEEN) 10/15/17 02:40 Vancomycin Trough 14.7 ug/mL (5.0-20.0) 10/18/17 20:16 Rheumatoid Factor 22 IU/ml (0-13) H 10/19/17 13:05 KELLIE Screen Negative (Negative) 10/17/17 14:14 C.trachomatis DNA (SDA) Not detected (Not Detected) 10/16/17 09:13 N.gonorrhoeae DNA (SDA) Not detected (Not Detected) 10/16/17 09:13
[2017-10-20] MEDS: LOPRESSOR PO SCH ×2 (10:49→21:23)
[2017-10-20] MEDS: VANCOMYCIN 1,750 MG in NACL 0.9% 500 ML 500 ML IV SCH ×2 (10:49→21:22)
[2017-10-20] MEDS: DITROPAN PO SCH ×2 (10:49→21:24)
[2017-10-20] MEDS: HALFPRIN EC PO SCH (10:49)
[2017-10-20] MEDS: PREZISTA PO SCH (10:50)
[2017-10-20] MEDS: NORVIR PO SCH (10:50)
[2017-10-20] MEDS: DESCOVY PO SCH (10:56)
[2017-10-20 12:12] LABS: ANA Screen, IFA Negative (Negative)
--- NOTE | 2017-10-20 13:14 | Progress Note ---
Assessment and Plan Assessment: 1) SIRS: improving after the addition of IV solumedrol on 10/19. Etiology Edilberto knee arthritis +/- UTI +/- conjunctivitis +/- 2) Edilberto L>R knee arthritis: unclear etiology ? likely inflammatory (associated with Cronh's or UC) vs. reactive (post-diarrhea). Doubt bacterial (cultures negative) and gout (no crystals seen) -Synovial fluid showed 87,750 white blood cells and 85% segs, no crystals. Gram stain many WBC no organisms. -CRP=30 -RF=22 (high) -GC and chlamydia negative 3) UTI: urine cx 10-100K mixed bacteria 4) Acute Diarrhea: started 2 weeks ago, no recent intake of antibiotics 5) HIV infection: since 2000, currently on Descovy, Norvir and Prezista, sees HIV clinic [facility] in [place], [place]. Last viral load was undetectable and CD4 573. 6) Edilberto conjunctivitis Plan: -Refer patient to outpatient Rheum -continue steroids ok to change to PO -F/u HLA-B27, KELLIE, ANCA - pending -stop ceftriaxone and vancomycin - D5 (no evidence of bacterial infection) -monitor fever -continue descovy, prezista, norvir -if not fever for 24h and decreased knee swelling ok to d/c with PO steroids taper -HIV clinic f/u with his regular provider Thank you for your consultation, will follow up with you. Padmini Curry MD Infectious Diseases Specialist [facility] ([facility] M [phone] O [phone] Subjective Date of service: 10/20/17 Principal diagnosis: SIRS Interval history: Feels better, fever trending down, knee pain is improving after addition of IV solumedrol. Tmax 99.8 Microbiology: Blood cultures: 10/15 ngtd Synovial cultures: many PMNs no organisms. Urien cx: 10-100K mixed Current Antimicrobials: Ceftriaxone 10/16 Vancomycin 10/16 Previous Antimicrobials: Objective - Constitutional Vitals: Vital Signs Temp Pulse Resp BP Pulse Ox 97.7 F 80 20 135/79 91 10/20/17 07:16 10/20/17 07:16 10/20/17 07:16 10/20/17 07:16 10/20/17 07:16 Temperature -Last 24 Hours Temperature 97.7 F Temperature 99.1 F Temperature 99.8 F - Labs CBC & Chem 7: 10/19/17 13:05 10/18/17 05:15 Labs: Abnormal lab results 10/19/17 10/19/17 10/19/17 Range/Units 13:05 13:05 13:05 WBC 16.5 H (4.5-11.0) K/mm3 Hgb 11.3 L (11.8-15.2) gm/dl Hct 34.2 L (35.5-45.6) % Lymph % (Auto) 10.2 L (13.4-35.0) % [place] % (Auto) 16.0 H (0.0-7.3) % [place] # 2.6 H (0.0-0.8) K/mm3 Seg Neutrophils % 72.0 H (40.0-70.0) % Seg Neutrophils # 11.9 H (1.8-7.7) K/mm3 C-Reactive Protein 41.00 H (0.00-1.30) mg/dL Rheumatoid Factor 22 H (0-13) IU/ml
[2017-10-20 22:49] LABS: ANA Screen, IFA Negative (Negative)
[2017-10-21 05:59] LABS: Hematocrit 33.3 % (35.5-45.6); Mean Corpuscular HGB Conc 33 % (32-34); Mean Corpuscular Hemoglobin 28 pg (28-32); Mean Corpuscular Volume 85 fl (84-94); Platelet Count 441 K/mm3 (140-440); Red Blood Count 3.92 M/mm3 (3.65-5.03); Red Cell Distribution Width 14.4 % (13.2-15.2)
[2017-10-21] MEDS: cefTRIAXone 2 GM in NACL 0.9% 20 ML IV SCH (06:09)
[2017-10-21] MEDS: PERCOCET 5/325 PO PRN (06:13)
[2017-10-21 06:20] LABS: BUN/Creatinine Ratio 24; Blood Urea Nitrogen 31 mg/dL (9-20); Calcium 8.9 mg/dL (8.4-10.2); Hemolysis Index 2
[2017-10-21 08:30] VITALS: BP 143/75
--- NOTE | 2017-10-21 09:47 | Discharge Summary ---
Providers - Providers Date of Admission: 10/15/17 05:24 Date of discharge: 10/21/17 Attending physician: PAVAN DELEON 10/15/17 05:28 Consult to Physician [CONS] Stat Comment: Consulting Provider: VINCENZO PAGE Physician Instructions: septic arthritis left knee Reason For Exam: Septic left knee 10/17/17 08:27 Consult to Physician [CONS] Routine Comment: Consulting Provider: DEISY MCKNIGHT Physician Instructions: Reason For Exam: LT knee septic arthritis 10/21/17 09:43 Physical Therapy Evaluation and Treat [CONS] Routine Reason For Exam: debility Comment: Primary care physician: PAVAN GONZALEZ Hospitalization Condition: Stable Hospital course: Patient is a 52 year old -[place] male with history of HIV, who presented with 5 days history of left knee swelling. Patient was found to be septic on admission and was initiated on IV antibiotics and IV fluids. Infectious disease was consulted and joint aspiration was obtained. Synovial fluid was negative for any growth or crystals. Patient initially did not respond to treatment and the right knee became swollen and painful as well. Patient was then initiated on IV steroids after which he improved. IV antibiotics was discontinued and patient was clinically stable for discharge home. On admission patient was found to have an acute kidney injury after which he improved with IV fluids. He is advised to follow-up with his primary care provider within 5 days of discharge. Discharge diagnoses Bilateral knee Inflammatory arthritis Left knee septic arthritis Sepsis Acute kidney injury HIV Hypertension Disposition: TO HOME OR SELFCARE Time spent for discharge: 32 minutes Core Measure Documentation - Palliative Care Palliative Care/ Comfort Measures: Not Applicable - Core Measures Any of the following diagnoses?: none Exam - Constitutional Vitals: Temp Pulse Resp BP Pulse Ox 97.9 F 74 16 143/75 96 10/21/17 07:34 10/21/17 07:34 10/21/17 07:34 10/21/17 07:34 10/21/17 07:34 General appearance: Present: no acute distress, well-nourished - EENT Eyes: Present: PERRL ENT: hearing intact, clear oral mucosa - Neck Neck: Present: supple, normal ROM - Respiratory Respiratory effort: normal Respiratory: bilateral: CTA - Cardiovascular Heart Sounds: Present: S1 & S2. Absent: rub, click - Extremities Extremities: pulses symmetrical Extremity abnormal: edema (mild edema, bilateral knee) Peripheral Pulses: within normal limits - Abdominal General gastrointestinal: Present: soft, non-tender, non-distended, normal bowel sounds - Integumentary Integumentary: Present: clear, warm, dry - Musculoskeletal Musculoskeletal: gait normal, strength equal bilaterally - Psychiatric Psychiatric: appropriate mood/affect, intact judgment & insight - Neurologic Neurologic: CNII-XII intact, moves all extremities Plan Follow up with: PAVAN GONZALEZ MD [Primary Care Provider] - 3-5 Days [facility] [Provider Group] - 7 Days () Prescriptions: Oxycodone HCl/Acetaminophen [Percocet 10/325 mg] 1 each PO Q6HR PRN #14 tablet PRN Reason: Pain predniSONE [Deltasone] 10 mg PO .TAPER #21 tab
[2017-10-21] MEDS: HALFPRIN EC PO SCH (09:51)
[2017-10-21] MEDS: LOPRESSOR PO SCH (09:51)
[2017-10-21] MEDS: PREZISTA PO SCH (09:52)
[2017-10-21] MEDS: NORVIR PO SCH (09:52)
[2017-10-21] MEDS: DITROPAN PO SCH (09:52)
[2017-10-21] MEDS: DESCOVY PO SCH (09:55)
== END 2017-10-21 14:30 | disposition home or self-care (01) | DRG 975 ==
LOC: ED 19:07 → 3A 10-15 05:24
PROVIDERS: ADMIT Emergency Medicine; ATTEND Internal Medicine
PROC: 0S9D3ZZ Drainage of Left Knee Joint, Percutaneous Approach (ICD-10-PCS; principal; 2017-10-15)
DX: B20 Human immunodeficiency virus [HIV] disease (principal); A41.9 Sepsis, unspecified organism; M00.862 Arthritis due to other bacteria, left knee; N17.9 Acute kidney failure, unspecified; N30.00 Acute cystitis without hematuria; Z88.0 Allergy status to penicillin; Z79.82 Long term (current) use of aspirin; Z79.899 Other long term (current) drug therapy; I10 Essential (primary) hypertension; Z90.49 Acquired absence of other specified parts of digestive tract; M17.0 Bilateral primary osteoarthritis of knee; B30.9 Viral conjunctivitis, unspecified
CPT/HCPCS: 36415; 80048; 80053; 80202; 81001; 84550; 85007; 85025; 85027; 85048; 85652; 86038; 86140; 86160; 86200; 86618; 86812; 87040; 87086; 87116; 87591; 89051; 96365; 96375; J0696; J2270; J2930; J3370; J7030; J7040